=== PATIENT | female | born 1945 | race Caucasian/White ===

== ENCOUNTER 2017-08-06 12:20 | Emergency (ER) | payer MEDICARE, OTHER ==
[~2017-08-06] VITALS: Ht 167.6 cm; Wt 98.4 kg
[~2017-08-06 12:20] MED LIST: ASPIRIN ENTERI325 MG PO; DIOVAN HCT 1601 EACH PO; DIOVAN160 MG PO; ESIDRIX25 MG PO; LEVOTHYROXINE88 MCG PO; LEVOXYL125 MCG PO; METOPROLOL TART25 MG PO; SYMBICORT 16010.2 GM INH
[2017-08-06 14:01] LABS: BASOPHILS # (AUTO) 0.1 (0.0-0.1); BASOPHILS % 0.6 % (0.0-1.0); EOSINOPHILS # (AUTO) 0.1 (0.0-0.4); EOSINOPHILS % 0.6 % (0.0-6.0); HEMOGLOBIN 13.4 g/dL (12.0-16.0); LYMPHOCYTES # (AUTO) 1.7 (1.0-3.2); LYMPHOCYTES % 19.9 % (18.0-39.1); MEAN CORPUSCULAR HEMOGLOBIN 31.5 pg (28-32); MEAN CORPUSCULAR HGB CONC 32.7 g/dL (31-35); MEAN CORPUSCULAR VOLUME 96.5 fL (81-99); MONOCYTES # (AUTO) 0.7 (0.2-0.8); MONOCYTES % 7.9 % (4.4-11.3); NEUTROPHILS # (AUTO) 5.9 (2.1-6.9); NEUTROPHILS % 70.6 % (38.7-80.0); PLATELET COUNT 162 x10e3/uL (140-360); RED BLOOD COUNT 4.25 x10e6/uL (3.6-5.1); RED CELL DISTRIBUTION WIDTH 13.5 % (11.7-14.4)
[2017-08-06 14:06] LABS: INR 0.99; PROTHROMBIN TIME 13.6 seconds (11.9-14.5)
[2017-08-06 14:07] LABS: PARTIAL THROMBOPLASTIN TIME 31.2 seconds (23.8-35.5)
[2017-08-06 14:17] LABS: ALANINE AMINOTRANSFERASE 44 IU/L (0-55); ALBUMIN 3.7 g/dL (3.5-5.0); ALBUMIN/GLOBULIN RATIO 0.8 (0.8-2.0); ALKALINE PHOSPHATASE 70 IU/L (40-150); ANION GAP 12.9 mmol/L (8-16); BLOOD UREA NITROGEN 14 mg/dL (7-26); BUN/CREATININE RATIO 18 (6-25); CALCIUM 9.4 mg/dL (8.4-10.2); CARBON DIOXIDE 25 mmol/L (22-29); CHLORIDE 106 mmol/L (98-107); CREATINE KINASE 37 IU/L (29-168); CREATININE, SERUM 0.77 mg/dL (0.57-1.11); EST GLOMERULAR FILTRATION RATE > 60 ML/MIN (60-); GLUCOSE 140 mg/dL (74-118); POTASSIUM 3.9 mmol/L (3.5-5.1); SODIUM 140 mmol/L (136-145)
[2017-08-06 14:23] LABS: TROPONIN I 0.019 ng/mL (0-0.300)
--- NOTE | 2017-08-06 14:40 | Diagnostic Imaging Report ---
EXAMINATION: CHEST SINGLE (PORTABLE) INDICATION: \S\CHEST PAIN \S\[id number] \S\1420 \S\Y COMPARISON: Chest radiograph from 07/01/2010 and 08/21/2013 FINDINGS: AP view TUBES and LINES: None. LUNGS: Lungs are well inflated. Bibasilar atelectasis. Bilateral central pulmonary vascular congestion. PLEURA: No pleural effusion or pneumothorax. HEART AND MEDIASTINUM: Stable mild cardiomegaly.. BONES AND SOFT TISSUES: No acute osseous lesion. Soft tissues are unremarkable. UPPER ABDOMEN: No free air under the diaphragm. IMPRESSION: Mild cardiomegaly with associated central pulmonary vascular congestion. Signed by: Dr. Florence Santoro M.D. on 08/06/2017 2:37 PM
[2017-08-06 15:25] LABS: BILIRUBIN,URINE NEGATIVE (NEGATIVE); KETONES,URINE NEGATIVE (NEGATIVE); LEUKOCYTE ESTERASE ,URINE NEGATIVE (NEGATIVE); NITRITE,URINE NEGATIVE (NEGATIVE); PROTEIN,URINE DIPSTICK NEGATIVE (NEGATIVE); URINE UROBILINOGEN 0.2 mg/dL (0.2 - 1)
[2017-08-06 15:31] LABS: CLARITY,URINE CLEAR (CLEAR); COLOR,URINE YELLOW (YELLOW)
[2017-08-06 16:08] LABS: RBC,URINE 0-5 /HPF (0-5); WBC,URINE (MAN) 0-5 /HPF (0-5)
[2017-08-06 16:09] LABS: BACTERIA,URINE RARE /HPF; EPITHELIAL CELLS,URINE MODERATE /LPF
== END 2017-08-06 18:43 | disposition home or self-care (01) ==
LOC: ER 12:20
DX: R07.89 Other chest pain (principal); I10 Essential (primary) hypertension; I48.91 Unspecified atrial fibrillation; J44.9 Chronic obstructive pulmonary disease, unspecified; E03.9 Hypothyroidism, unspecified
CPT/HCPCS: 36415; 71010; 80053; 81001; 82550; 82553; 83880; 84484; 85025; 85610; 85730; 93005; 99283

== ENCOUNTER → 2017-11-22 | Outpatient (CLI) | payer MEDICARE | LOC: MAMMO 09:40 | PROVIDERS: ATTEND Internal Medicine | DX: Z12.31 Encounter for screening mammogram for malignant neoplasm of breast (principal) | CPT/HCPCS: 77067 ==

== ENCOUNTER → 2018-04-04 | Outpatient (CLI) | payer MEDICARE ==
--- NOTE | 2018-04-04 13:54 | Diagnostic Imaging Report ---
Exam: Lumbar spine AP lateral oblique and sacrum 2 views History: Pain Comparison: None. Findings: No acute fracture. Fusion of L4-L5 with interbody cage and 2 screws. No hardware loosening. Region of L5-S1 and the posterior elements. Mild sacroiliac degenerative arthrosis. Mild vascular calcifications. Impression: No acute osseous abnormality Lower lumbar spine fusion. No complication. Signed by: Dr. Travis Flores M.D. on 04/04/2018 1:51 PM
== END ==
LOC: RAD 13:01
PROVIDERS: ATTEND Internal Medicine
DX: M54.5 Low back pain (principal); Z98.1 Arthrodesis status
CPT/HCPCS: 72110; 72220

== ENCOUNTER → 2018-07-18 | Outpatient (CLI) | payer MEDICARE ==
--- NOTE | 2018-07-18 12:29 | Diagnostic Imaging Report ---
EXAMINATION: CHEST 2 VIEWS INDICATION: ^COUGH COMPARISON: 08/06/2017 FINDINGS: PA and lateral views TUBES and LINES: None. LUNGS: Lungs are well inflated. There is no evidence of pneumonia or pulmonary edema. PLEURA: No pleural effusion or pneumothorax. HEART AND MEDIASTINUM: The cardiac silhouette is mildly enlarged. BONES AND SOFT TISSUES: No acute osseous lesion. Soft tissues are unremarkable. UPPER ABDOMEN: No free air under the diaphragm. IMPRESSION: No acute thoracic abnormality. Signed by: Dr. Andrey Rivera MD on 07/18/2018 12:25 PM
== END ==
LOC: RAD 11:41
PROVIDERS: ATTEND Internal Medicine
DX: R05 Cough (principal)
CPT/HCPCS: 71046

== ENCOUNTER 2018-10-11 16:36 | Inpatient (IN) | payer MEDICARE ==
[~2018-10-11] VITALS: Ht 167.6 cm; Wt 96.4 kg
--- OUTSIDE RECORDS SUMMARY | 2018-10-11 16:40 | XMS REPORT | Summary of Care ---
Author Author [facility] - [place] Organization [facility] [place] Address Unknown Phone Unavailable Encounter HQ Encntr_alijames(FIN) [id number] Date(s): 06/08/16 - 06/08/16 [facility] Outpatient [facility] - [place] [address] [place] [address]- [phone] Discharge Disposition: Home or Self Care Attending Physician: Aryan Corcoran MD Vital Signs No data available for this section Problem List No data available for this section Allergies, Adverse Reactions, Alerts No data available for this section Medications No data available for this section Results No data available for this section Immunizations No data available for this section Procedures No data available for this section Social History No data available for this section Assessment and Plan No data available for this section
--- OUTSIDE RECORDS SUMMARY | 2018-10-11 16:40 | XMS REPORT | Summary of Care ---
Author Author [facility] Organization [facility] Address Unknown Phone Unavailable Encounter HQ Mayter_malou(FIN) [id number] Date(s): 03/07/18 - 03/07/18 [facility] [address] [place] [address]- [phone] Encounter Diagnosis Presence of right artificial knee joint (Final) - 03/13/18 Pain in right knee (Final) - Discharge Disposition: Home or Self Care Attending Physician: Mike Cárdenas MD Admitting Physician: Mike Cárdenas MD Referring Physician: Mike Cárdenas MD Vital Signs No data available for this section Problem List Condition Effective Dates Status Health Status Informant Arthritis(Confirmed) Active Back pain, Active chronic(Confirmed) COPD (chronic Active obstructive pulmonary disease)(Confirmed) Cough(Confirmed) Resolved HTN Active (hypertension)(Confi rmed) Hypothyroidism(Confi Active rmed) Allergies, Adverse Reactions, Alerts Substance Reaction Severity Status sulfa drugs Active shellfish Active iodine Active Medications No data available for this section Results No data available for this section Immunizations No data available for this section Procedures Procedure Date Related Diagnosis Body Site Status Appendectomy Completed Hip replacement1 Completed Hysterectomy Completed Knee replacement2 Completed Lumbar spinal fusion Completed 1parital 2partial Social History Social History Type Response Substance Abuse Use: None. Alcohol Never Smoking Status Former smoker; Exposure to Tobacco Smoke None; Cigarette Smoking Last 365 Days No; Reg Smoking Cessation Counseling No entered on: 08/01/18 Assessment and Plan No data available for this section
--- OUTSIDE RECORDS SUMMARY | 2018-10-11 16:40 | XMS REPORT | Summary of Care ---
Author Organization Unknown Address Unknown Phone Unavailable Encounter HQ Encntr_alias(FIN) [id number] Date(s): 07/19/14 - 07/19/14 [facility] Outpatient Imaging - [address] [address]- [place] Discharge Disposition: Home Physician Attending: Aryan Corcoran MD Reason for Visit V76.12 - SCREEN MAMMOGRA Problem List No data available for this section Allergies, Adverse Reactions, Alerts No data available for this section Medications No data available for this section Medications Administered During Your Visit No data available for this section Immunizations No data available for this section
--- OUTSIDE RECORDS SUMMARY | 2018-10-11 16:40 | XMS REPORT | Summary of Care ---
Author Author Tor Reyes M.A. Unknown Address [facility] Phone Unavailable Care Team Providers Care Cotton Seed Culler Name Role Phone ADAM CHEW M.D. 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, M17.11) Status: Active Medications Name Dates Details Medications not documented Allergies and Adverse Reactions Name Dates Details No Known Drug Allergies (Allergy) Status: Active Procedures Procedure Dates Details Post Op Promis 29 Survey Date: 17-Aug-2018 [U] XRAY BONE LENGTH STUDY-SCANOGRAM 14064 Date: 26-Sep-2018 [U] XRAY KNEE 1 OR 2 VWS RIGHT 59467 Date: 26-Sep-2018 Immunization Name Dates Details Immunizations not documented Social History Name Dates Details Unknown if ever smoked Vital Signs Date Test Result Details No Known Vitals to report Results Date Description Value Details Results not documented Plan of Care Name Dates Details Planned Observations Planned Goals not documented Planned Encounters Appointment; ADAM CHEW M.D. On: 28-Sep-2018 11:30 Interventions Provided Labs/Procedures/Imaging* [U] XRAY BONE LENGTH STUDY-SCANOGRAM 00783; To Be Done: 28 Sep 2018 * [U] XRAY KNEE 1 OR 2 VWS RIGHT 74331; To Be Done: 28 Sep 2018 Instructions Name Dates Details Instructions not documented Encounters Appointment; ADAM CHEW M.D. Encounter Diagnosis: Problem not documented On: 05-Apr-2018 15:30 Appointment; ADAM CHEW M.D. Encounter Diagnosis: Problem not documented On: 10-May-2018 9:15 Appointment; ADAM CHEW M.D. Encounter Diagnosis: Problem not documented On: 17-May-2018 10:30 Appointment; ADAM CHEW M.D. Encounter Diagnosis: Problem not documented On: 26-May-2018 10:15 Appointment; ADAM CHEW M.D. Encounter Diagnosis: Problem not documented On: 29-Jun-2018 14:45 Appointment; ADAM CHEW M.D. Encounter Diagnosis: Problem not documented On: 26-Jul-2018 10:15 Appointment; ADAM CHEW M.D. Encounter Diagnosis: Problem not documented On: 01-Aug-2018 7:00 Appointment; ADAM CHEW M.D. Encounter Diagnosis: Problem not documented On: 10-Aug-2018 15:15 Appointment; ADAM CHEW M.D. Encounter Diagnosis: Problem not documented On: 17-Aug-2018 13:30 Appointment; ADAM CHEW M.D. Encounter Diagnosis: Problem not documented On: 28-Sep-2018 11:30
--- OUTSIDE RECORDS SUMMARY | 2018-10-11 16:40 | XMS REPORT | Summary of Care ---
Author Organization Unknown Address Unknown Phone Unavailable Encounter Dates Location Diagnoses Discharge Providers Disposition 09/21/2013 [facility] Outpatient Imaging - Home Aryan Corcoran [facility] 09/21/[address] Reason for Visit 789.00 - ABDMNAL PAIN UN Problem List No data available for this section Allergies, Adverse Reactions, Alerts No data available for this section Medications No data available for this section Medications Administered During Your Visit No data available for this section Immunizations No data available for this section
--- OUTSIDE RECORDS SUMMARY | 2018-10-11 16:40 | XMS REPORT | Summary of Care ---
Author Author [facility] Address Unknown Phone Unavailable Encounter HQ Saroj(FIN) [id number] Date(s): 08/03/18 - 09/01/18 [facility] Discharge Disposition: Home or Self Care Attending Physician: Phan Zamora MD Vital Signs No data available for [...]
--- OUTSIDE RECORDS SUMMARY | 2018-10-11 16:40 | XMS REPORT | Summary of Care ---
Author Author [facility] Outpatient Imaging [facility]patient [facility] [place] Address Unknown Phone Unavailable Encounter HQ Mayter_malou(FIN) [id number] Date(s): 02/28/18 - 02/28/18 [facility] Outpatient Imaging [place] [address] [facility] [place], [place] [address]- [phone] Encounter Diagnosis Pain in right knee (Final) - 03/07/18 Discharge Disposition: Home or Self Care Attending Physician: Mike Cárdenas MD Referring Physician: Mike [...]
--- OUTSIDE RECORDS SUMMARY | 2018-10-11 16:40 | XMS REPORT ---
Author Author [facility] Address Unknown Phone Unavailable Care Team Providers Care Edger Machine Setter Name Role Phone Antonio DUNCAN Unavailable Unavailable Wolfgang SHANKAR Unavailable Unavailable Problems This patient has no known problems. Allergies, Adverse Reactions, Alerts This patient has no known allergies or adverse reactions. Medications This patient has no known medications. Results Test Description Test Time Test Comments Text Results Atomic Results Result Comments CHEST 2 VIEWS 2018-07-18 12:24:00 [place] [address] Patient Name: CYNDI DYER MR #: [id number] : 1945 Age/Sex: 73/F Req #: [id number] Adm Physician: Ordered by: MUSA DUNCAN MD Report #: [id number] Location: [facility] Room/Bed: Procedure: [id number] DX/CHEST 2 VIEWS Exam Date: Exam Time: REPORT STATUS: Signed EXAMINATION: CHEST 2 VIEWS INDICATION: COUGH COMPARI SON: 08/06/2017 FINDINGS: PA and lateral views TUBES and LINES: None. LUNGS: Lungs are well inflated. There is no evidence of pneumonia or pulmonary edema. PLEURA: No pleural effusion or pneumothorax. HEART AND MEDIASTINUM: The cardiac silhouette is mildly enlarged. BONES AND SOFT TISSUES: No acute osseous lesion. Soft tissues are unremarkable. UPPER ABDOMEN: No free air under the diaphragm. IMPRESSION: No acute thoracic abnormality. Signed by: Dr. Andrey Parsons MD on 07/18/2018 12:25 PM Dictated By: ANDREY PARSONS MD 24 Transcribed By: DONNIE on 07/18/181224 COPY TO: MUSA DUNCAN MD SP LUMBAR, COMPLETE MIN 4VW 2018-04-04 13:48:00 [place] [address] Patient Name: CYNDI DYER MR #: [id number] : 1945 Age/Sex: 73/F Req #: [id number] Adm Physician: Ordered by: MUSA DUNCAN MD Report #: [id number] Location: [facility] Room/Bed: Procedure: [id number] DX/SP LUMBAR, COMPLETE MIN 4VW Exam Date: 04/04/18 Exam Time: 1325 REPORT STATUS: Signed Exam: Lumbar spine AP lateral oblique and sacrum 2 views History: Pain Comparison: None. Findings: No acute fracture. Fusion of L4-L5 with interbody cage and 2 screws. No hardware loosening. Region of L5-S1 and the posterior elements. Mild sacroiliac degenerative arthrosis. Mild vascular calcifications. Impression: No acute osseous abnormality Lower lumbar spine fusion. No complication. Signed by: Dr. Andrade Chua M.D. on 04/04/2018 1:51 PM Dictated By: ANDRADE CHUA MD 1351 Transcribed By: DONNIE on 04/04/18 135 COPY TO: MUSA DUNCAN MD SACRUM X-RAY 2018-04-04 13:48:00 [place] [address] Patient Name: CYNDI DYER MR #: [id number] : 1945 Age/Sex: 73/F Req #: [id number] Adm Physician: Ordered by: MUSA DUNCAN MD Report #: [id number] Location: RAD Room/Bed: Procedure: [id number] DX/SACRUM X-RAY Exam Date: 04/04/18 Exam Time: 1325 REPORT STATUS: Signed Exam: Lumbar spine AP lateral oblique and sacrum 2 views History: Pain Comparison: None. Findings: No acute fracture. Fusion of L4-L5 with interbody cage and 2 screws. No hardware loosening. Region of L5-S1 and the posterior elements. Mild sacroiliac degenerative arthrosis. Mild vascular calcifications. Impression: No acute osseous abnormality Lower lumbar spine fusion. No complication. Signed by: Dr. Andrade Chua M.D. on 04/04/2018 1:51 PM Dictated By: ANDRADE CHUA MD 1351 Transcribed By: DONNIE on 04/04/18 1351 COPY TO: MUSA DUNCAN MD MAMMOGRAPHY DIGITAL SCR BILAT [place] [address] Patient Name: CYNDI DYER MR #: [id number] : 1945 Age/Sex: 72/F Req #: [id number] Adm Physician: Ordered by: MUSA DUNCAN MD Report #: [id number] Location: MAMMO Room/Bed: Procedure: [id number] MG/MAMMOGRAPHY DIGITAL SCR BILAT Exam Date: 11/22/17 Exam Time: 09 REPORT STATUS: Signed #[id number] - [id number] #BILATERAL DIGITAL SCREENING MAMMOGRAM WITH CAD: 11/22/2017 CLINICAL: Routine screening. Comparison is made to exams dated: 06/08/2016 mammogram and 07/19/2014 mammogram - [facility]. Current study contains 4 films. The tissue of both breasts is predominantly fatty. Current study was also evaluated with a Computer Aided Detection (CAD) system. No significant masses, calcifications, or other findings are seen in either breast. Benign calcifications are present. There has been no significant interval change. IMPRESSION: NEGATIVE There is no mammographic evidence of malignancy. A 1 year screening mammogram is recommended. The patient will be notified by letter of the results. Henry Kim Jr., D.O. cw/:12/01/2017 10:13:54 Print Designer: Mana AMAROR)(), [facility] letter sent: Compared to Prior B9 Mammogram BI-RADS: 1 Negative Dictated By: HENRY KIM DO 1013 Transcribed By: HETAL on 12/01/17 1013 COPY TO: MUSA DUNCAN MD CHEST SINGLE (PORTABLE) [place] [address] Patient Name: CYNDI DYER MR #: [id number] : 1945 Age/Sex: 72/F Req #: [id number] Adm Physician: Ordered by: DAISY SHANKAR MD Report #: [id number] Location: ER Room/Bed: Procedure: [id number] DX/CHEST SINGLE (PORTABLE) Exam Date: 08/06/17 Exam Time: 1420 REPORT STATUS: Signed EXAMINATION: CHEST SINGLE (PORTABLE) INDICATION: COMPARISON: Chest radiograph from 07/01/2010 and 08/21/2013 FINDINGS: AP view TUBES and LINES: None. LUNGS: Lungs are well inflated. Bibasilar atelectasis. Bilateral central pulmonary vascular congestion. PLEURA: No pleural effusion or pneumothorax. HEART AND MEDIASTINUM: Stable mild cardiomegaly.. BONES AND SOFT TISSUES: No acute osseous lesion. Soft tissues are unremarkable. UPPER ABDOMEN: No free air under the diaphragm. IMPRESSION: Mild cardiomegaly with associated central pulmonary vascular congestion. Signed by: Dr. Ana Augustin M.D. on 08/06/2017 2:37 PM Dictated By: ANA AUGUSTIN MD 36 Transcribed By: DONNIE on 08/06/171436 COPY TO: DAISY SHANKAR MD
--- OUTSIDE RECORDS SUMMARY | 2018-10-11 16:40 | XMS REPORT | Summary of Care ---
Author Author [facility] Organization [facility] Address Unknown Phone Unavailable Encounter FABIAN Kyle(HO) [id number] Date(s): 08/01/18 - 08/02/18 [facility] [address] [place] [address]- Discharge Disposition: Home or Self Care Attending Physician: Phan Zamora MD Admitting Physician: Phan Zamora MD Referring Physician: Phan Zamora MD Vital Signs Most recent to 1 2 3 4 oldest [Reference Range]: Height 167.64 cm 167.64 cm (08/01/18 10:48 PM) (07/19/18 1:54 PM) Temperature Oral 98.2 DegF 98.1 DegF 98 DegF 98 DegF [96.4-99.1 DegF] (08/02/18 8:30 AM) (08/02/18 4:00 AM) (08/02/18 12:00 AM) (08/02/18 12:00 AM) Blood Pressure 146/60 mmHg 124/67 mmHg 148/74 mmHg 148/74 mmHg [90-140/60-90 mmHg] *HI* (08/02/18 4:00 AM) *HI* *HI* (08/02/18 8:30 AM) (08/02/18 12:00 AM) (08/02/18 12:00 AM) Respiratory Rate 16 BRMIN 18 BRMIN 16 BRMIN [14-20 BRMIN] (08/02/18 8:30 AM) (08/02/18 7:43 AM) (08/02/18 4:00 AM) Peripheral Pulse 60 bpm 65 bpm 61 bpm 61 bpm Rate [60-100 bpm] (08/02/18 8:30 AM) (08/02/18 4:00 AM) (08/02/18 12:00 AM) (08/02/18 12:00 AM) Weight 98.636 kg 98.409 kg (08/01/18 10:48 PM) (07/19/18 1:54 PM) Body Mass Index 35.1 m2 35.02 m2 (08/01/18 10:48 PM) (07/19/18 1:54 PM) Problem List Condition Effective Dates Status Health Status Informant Arthritis(Confirmed) Active Back pain, Active chronic(Confirmed) COPD (chronic Active obstructive pulmonary disease)(Confirmed) Cough(Confirmed) Resolved HTN Active (hypertension)(Confi rmed) Hypothyroidism(Confi Active rmed) Allergies, Adverse Reactions, Alerts Substance Reaction Severity Status sulfa drugs Active shellfish Active iodine Active Medications 1/2 NS 1,000 mL 1,000 mL, Rate: 75 ml/hr, Infuse over: 13.3 hr, Route: IV, Dosing Weight 98.409 kg, Total Volume: 1,000, Start date: 08/01/18 16:24:00 BOOK AGENT, Duration: 30 day, St op date: 08/31/18 16:23:00 BOOK AGENT, 2.17, m2 Start Date: 08/01/18 Stop Date: 08/02/18 Status: Discontinued albuterol 2.49 mg, 3 mL, Route: NEB, Drug form: HERB BAUTISTA, Start date: 08/02/18 7:00:[address], Duration: 30 day, Stop date: 08/31/18 19:00:00 BOOK AGENT Notes: SEE RT DOCUMENTATION (Same as: Ramírez) Start Date: 08/02/18 Stop Date: 08/02/18 Status: Discontinued albuterol 2.49 mg, 3 mL, Route: NEB, Drug form: HERB BAUTISTA, Start date: 08/02/18 7:00:[address], Duration: 30 day, Stop date: 08/31/18 19:00:00 BOOK AGENT Notes: SEE RT DOCUMENTATION (Same as: Provenkashif) Start Date: 08/02/18 Stop Date: 08/02/18 Status: Discontinued albuterol-ipratropium 2.5-0.5 mg inhalation solution 3 mL, Route: NEB, Dosing Weight 98.409, kg, ONCE, STAT, Start date: 08/01/18 13: 30:00 BOOK AGENT, Stop date: 08/01/18 13:30:00 BOOK AGENT Start Date: 08/01/18 Stop Date: 08/01/18 Status: Discontinued ANES acetaminophen 1,000 mg, Route: PO, Drug form: TAB, ONCE, Dosing Weight 98.409, kg, PRN Pain Sc ore 1-3, Start date: 08/01/18 17:09:00 BOOK AGENT Start Date: 08/01/18 Stop Date: 08/01/18 Status: Discontinued ANES diphenhydrAMINE 12.5 mg, Route: IVP, Drug form: INJ, Q6H, Dosing Weight 98.409, kg, PRN Itching, Start date: 08/01/18 17:09:00 BOOK AGENT, Duration: 30 day, Stop date: 08/31/18 17:08: 00 BOOK AGENT Start Date: 08/01/18 Stop Date: 08/01/18 Status: Discontinued ANES fentaNYL 50 microgram, Route: IVP, Q5Min, Dosing Weight 98.409, kg, PRN Pain Score 7-10, Priority: Routine, Start date: 08/01/18 17:09:00 BOOK AGENT, Duration: 2 doses or times , Stop date: Limited # of times Start Date: 08/01/18 Stop Date: 08/01/18 Status: Completed ANES flumazenil 0.2 mg, Route: IVP, PRN, Dosing Weight 98.409, kg, PRN Benzodiazepine Reversal, Initial dose, Start date: 08/01/18 17:09:00 BOOK AGENT, Duration: 30 day, Stop date: 17:08:00 BOOK AGENT Start Date: 08/01/18 Stop Date: 08/01/18 Status: Discontinued ANES hydrALAZINE 10 mg, Route: IVP, Q20Min, Dosing Weight 98.409, kg, PRN Elevated BP, Start date : 08/01/18 17:09:00 BOOK AGENT, Duration: 2 doses or times, Stop date: Limited # of edwina es Start Date: 08/01/18 Stop Date: 08/01/18 Status: Discontinued ANES HYDROmorphone 0.5 mg, Route: IVP, Q5Min, Dosing Weight 98.409, kg, PRN Pain Score 7-10, Start date: 08/01/18 17:09:00 BOOK AGENT, Duration: 4 doses or times, Stop date: Limited # of times Start Date: 08/01/18 Stop Date: 08/01/18 Status: Discontinued ANES labetalol 10 mg, Route: IVP, Q5Min, Dosing Weight 98.409, kg, PRN Elevated BP, Start date: 08/01/18 17:09:00 BOOK AGENT, Duration: 5 doses or times, Stop date: Limited # of times Start Date: 08/01/18 Stop Date: 08/01/18 Status: Discontinued ANES naloxone 0.4 mg, Route: IVP, Q2MIN, Dosing Weight 98.409, kg, PRN Narcotic Reversal, Star t date: 08/01/18 17:09:00 BOOK AGENT, Duration: 8 doses or times, Stop date: Limited # of times Start Date: 08/01/18 Stop Date: 08/01/18 Status: Discontinued ANES ondansetron 4 mg, Route: IVP, ONCE, Dosing Weight 98.409, kg, PRN Nausea & Vomiting, Start date: 08/01/18 17:09:00 BOOK AGENT Start Date: 08/01/18 Stop Date: 08/01/18 Status: Discontinued ANES oxyCODONE 5 mg, Route: PO, Drug form: TAB, Q4H, Dosing Weight 98.409, kg, PRN Pain Score 4 -6, Start date: 08/01/18 17:09:00 BOOK AGENT, Duration: 30 day, Stop date: 08/31/18 17: 08:00 BOOK AGENT Start Date: 08/01/18 Stop Date: 08/01/18 Status: Discontinued ANES oxyCODONE 10 mg, Route: PO, Drug form: TAB, Q4H, Dosing Weight 98.409, kg, PRN Pain Score 7-10, Start date: 08/01/18 17:09:00 BOOK AGENT, Duration: 30 day, Stop date: 08/31/18 1 7:08:00 BOOK AGENT Start Date: 08/01/18 Stop Date: 08/01/18 Status: Discontinued Breo Ellipta 100 mcg-25 mcg inhalation powder 1 puff, Route: INHALATION, Drug Form: PWDR, Dosing Weight 98.409, kg, Daily, Sta rt date: 08/02/18 9:00:00 BOOK AGENT, Duration: 30 day, Stop date: 08/31/18 9:00:00 BOOK AGENT Start Date: 08/02/18 Stop Date: 08/02/18 Status: Deleted Breo Ellipta 100 mcg-25 mcg inhalation powder 1 puff, INHALATION, Daily, 0 Refill(s) Start Date: 07/19/18 Status: Ordered ceFAZolin 2 gm, Route: IVPB, ONCALL, Dosing Weight 98.409, kg, Start date: 07/31/18 9:00:0 0 BOOK AGENT, Duration: 1 doses or times, ABX Indication: Surgical Prophylaxis Start Date: 07/31/18 Stop Date: 07/31/18 Status: Discontinued ceFAZolin (ANES) Route: IV, Drug form: INJ, ONCE, Stop date: 08/01/18 15:13:00 BOOK AGENT Start Date: 08/01/18 Stop Date: 08/01/18 Status: Completed ceFAZolin (SCIP) + sterile water 10 mL 1 gm, Route: IVP, [id number], Dosing Weight 98.409, kg, Start date: 08/01/18 18:00:0 0 BOOK AGENT, Duration: 3 doses or times, Stop date: 08/02/18 14:00:00 BOOK AGENT, ABX Indicat ion: Surgical Prophylaxis Notes: (Same As: Ancef, Kefzol) MEDICATION WASTE Product Size: 1000 mgP roduct Wasted: ___ mg Start Date: 08/01/18 Stop Date: 08/02/18 Status: Completed ceFAZolin + sterile water 20 mL 2 gm, Route: IVPB, ONCALL, Dosing Weight 98.409, kg, Start date: 08/01/18 13:00: 00 BOOK AGENT, Duration: 1 doses or times, ABX Indication: Surgical Prophylaxis Notes: (Same As: Ancef, Kefzol) MEDICATION WASTE Product Size: 1000 mgP roduct Wasted: ___ mg Start Date: 08/01/18 Stop Date: 08/02/18 Status: Discontinued dexamethasone (ANES) Route: IV, Drug form: INJ, ONCE, Stop date: 08/01/18 15:18:00 BOOK AGENT Start Date: 08/01/18 Stop Date: 08/01/18 Status: Completed Dextrose 50% Syringe 25 gm, 50 mL, Route: IVP, Drug Form: INJ, Dosing Weight 98.409, kg, PRN, PRN Blo od Glucose Results, Start date: 08/01/18 16:24:00 BOOK AGENT, Duration: 30 day, Stop da te: 08/31/18 16:23:00 BOOK AGENT Start Date: 08/01/18 Stop Date: 08/02/18 Status: Discontinued Dextrose 50% Syringe 12.5 gm, 25 mL, Route: IVP, Drug Form: INJ, Dosing Weight 98.409, kg, PRN, PRN B lood Glucose Results, Start date: 08/01/18 16:24:00 BOOK AGENT, Duration: 30 day, Stop date: 08/31/18 16:23:00 BOOK AGENT Start Date: 08/01/18 Stop Date: 08/02/18 Status: Discontinued enoxaparin 40 mg, 0.4 mL, Route: SUB-Q, Drug form: INJ, [id number], Dosing Weight 98.409, kg, Start date: 08/01/18 17:00:00 BOOK AGENT, Duration: 30 day, Stop date: 08/30/18 15:00: 00 BOOK AGENT Notes: (Same as: Lovenox) Start Date: 08/01/18 Stop Date: 08/02/18 Status: Discontinued fentaNYL (ANES) Route: IV, Drug form: INJ, ONCE, Stop date: 08/01/18 16:55:00 BOOK AGENT Start Date: 08/01/18 Stop Date: 08/01/18 Status: Completed fentaNYL (ANES) Route: IV, Drug form: INJ, ONCE, Stop date: 08/01/18 15:43:00 BOOK AGENT Start Date: 08/01/18 Stop Date: 08/01/18 Status: Completed gabapentin 300 mg, Route: PO, ONCALL, Dosing Weight 98.409, kg, Start date: 08/01/18 13:00: 00 BOOK AGENT, Duration: 30 day, Stop date: 08/31/18 12:59:00 BOOK AGENT Start Date: 08/01/18 Stop Date: 08/01/18 Status: Completed gabapentin 300 mg, Route: PO, ONCALL, Dosing Weight 98.409, kg, Start date: 07/31/18 9:00:0 0 BOOK AGENT, Duration: 30 day, Stop date: 08/30/18 8:59:00 BOOK AGENT Start Date: 07/31/18 Stop Date: 07/31/18 Status: Discontinued glucagon 1 mg, Route: IM, Drug form: PDR/INJ, PRN, Dosing Weight 98.409, kg, PRN Blood Gl ucose Results, Start date: 08/01/18 16:24:00 BOOK AGENT, Duration: 30 day, Stop date: 0 08/31/18 16:23:00 BOOK AGENT Start Date: 08/01/18 Stop Date: 08/02/18 Status: Discontinued glycopyrrolate (ANES) Route: IV, Drug form: INJ, ONCE, Stop date: 08/01/18 16:55:00 BOOK AGENT Start Date: 08/01/18 Stop Date: 08/01/18 Status: Completed glycopyrrolate (ANES) Route: IV, Drug form: INJ, ONCE, Stop date: 08/01/18 15:18:00 BOOK AGENT Start Date: 08/01/18 Stop Date: 08/01/18 Status: Completed hydrALAZINE 10 mg, 0.5 mL, Route: IV, Drug form: INJ, Q4H, Dosing Weight 98.409, kg, PRN Hyp ertension, Start date: 08/01/18 20:29:00 BOOK AGENT, Duration: 30 day, Stop date: 08/31 20:28:00 BOOK AGENT Notes: (Same as: Apresoline)Push over 5 minutes Start Date: 08/01/18 Stop Date: 08/02/18 Status: Discontinued hydrochlorothiazide 12.5 mg, 1 tab, Route: PO, Drug form: TAB, Daily, Start date: 08/02/18 9:00:[address], Duration: 30 day, Stop date: 08/31/18 9:00:00 BOOK AGENT Notes: (Same as: Hydrodiuril). Give with food. Start Date: 08/02/18 Stop Date: 08/02/18 Status: Discontinued hydrochlorothiazide-valsartan 12.5 mg-160 mg oral tablet 1 tab, PO, Daily, # 30 tab, 0 Refill(s) Start Date: 07/19/18 Status: Ordered hydrochlorothiazide-valsartan 12.5 mg-160 mg oral tablet 1 tab, Route: PO, Drug Form: TAB, Dosing Weight 98.409, kg, Daily, Start date: 0 08/02/18 9:00:00 BOOK AGENT, Duration: 30 day, Stop date: 08/31/18 9:00:00 BOOK AGENT Start Date: 08/02/18 Stop Date: 08/02/18 Status: Deleted insulin lispro 6 unit, 0.06 mL, Route: SUB-Q, Drug form: SOLN, TID-Before Meals, Dosing Weight 98.409, kg, PRN Blood Glucose Results, Start date: 08/01/18 16:24:00 BOOK AGENT, Durati on: 30 day, Stop date: 08/31/18 16:23:00 BOOK AGENT Notes: (Same as: Humalog ) Roll in palms of hands gently; Do not shake `vigorou sly. "Single Patient Use Only " WASTE: F/P - Black; E - [facility] [employer] [address] able for 28 days at room temperature.Expires in days from Da te Start Date: 08/01/18 Stop Date: 08/02/18 Status: Discontinued insulin lispro 2 unit, 0.02 mL, Route: SUB-Q, Drug form: SOLN, TID-Before Meals, Dosing Weight 98.409, kg, PRN Blood Glucose Results, Start date: 08/01/18 16:24:00 BOOK AGENT, Durati on: 30 day, Stop date: 08/31/18 16:23:00 BOOK AGENT Notes: (Same as: Humalog ) Roll in palms of hands gently; Do not shake `vigorou sly. "Single Patient Use Only " WASTE: F/P - Black; E - [facility] [address] able for 28 days at room temperature.Expires in days from Da te Start Date: 08/01/18 Stop Date: 08/02/18 Status: Discontinued insulin lispro 4 unit, 0.04 mL, Route: SUB-Q, Drug form: SOLN, TID-Before Meals, Dosing Weight 98.409, kg, PRN Blood Glucose Results, Start date: 08/01/18 16:24:00 BOOK AGENT, Durati on: 30 day, Stop date: 08/31/18 16:23:00 BOOK AGENT Notes: (Same as: Humalog ) Roll in palms of hands gently; Do not shake `vigorou sly. "Single Patient Use Only " WASTE: F/P - Black; E - [facility] [address] able for 28 days at room temperature.Expires in days from Da te Start Date: 08/01/18 Stop Date: 08/02/18 Status: Discontinued insulin lispro 10 unit, 0.1 mL, Route: SUB-Q, Drug form: SOLN, TID-Before Meals, Dosing Weight 98.409, kg, PRN Blood Glucose Results, Start date: 08/01/18 16:24:00 BOOK AGENT, Durati on: 30 day, Stop date: 08/31/18 16:23:00 BOOK AGENT Notes: (Same as: Humalog ) Roll in palms of hands gently; Do not shake `vigorou sly. "Single Patient Use Only " WASTE: F/P - Black; E - [facility] [address] able for 28 days at room temperature.Expires in days from Da te Start Date: 08/01/18 Stop Date: 08/02/18 Status: Discontinued insulin lispro 8 unit, 0.08 mL, Route: SUB-Q, Drug form: SOLN, TID-Before Meals, Dosing Weight 98.409, kg, PRN Blood Glucose Results, Start date: 08/01/18 16:24:00 BOOK AGENT, Durati on: 30 day, Stop date: 08/31/18 16:23:00 BOOK AGENT Notes: (Same as: Humalog ) Roll in palms of hands gently; Do not shake `vigorou sly. "Single Patient Use Only " WASTE: F/P - Black; E - [facility] [address] able for 28 days at room temperature.Expires in days from Da te Start Date: 08/01/18 Stop Date: 08/02/18 Status: Discontinued ketOROLAC (ANES) IV, ONCE Start Date: 08/01/18 Stop Date: 08/01/18 Status: Completed Lactated Ringers Injection IV (ANES) 1000 mL Route: IV, Total Volume: 1,000, Start date: 08/01/18 14:22:00 BOOK AGENT, Stop date: 15:22:00 BOOK AGENT Start Date: 08/01/18 Stop Date: 08/01/18 Status: Completed Lactated Ringers Injection IV 1,000 mL 1,000 mL, Rate: 25 ml/hr, Infuse over: 40 hr, Route: IV, Dosing Weight 98.409 kg , Total Volume: 1,000, Start date: 07/31/18 8:44:00 BOOK AGENT, Duration: 30 day, Stop date: 08/30/18 8:43:00 BOOK AGENT, 2.17, m2 Start Date: 07/31/18 Stop Date: 08/01/18 Status: Discontinued Lactated Ringers Injection IV 1000 mL 1,000 mL, Rate: 25 ml/hr, Infuse over: 40 hr, Route: IV, Dosing Weight 98.409 kg , Total Volume: 1,000, Start date: 08/01/18 13:30:00 BOOK AGENT, Duration: 30 day, Stop date: 08/31/18 13:29:00 BOOK AGENT, 2.17, m2 Start Date: 08/01/18 Stop Date: 08/01/18 Status: Discontinued levothyroxine 112 microgram, 1 tab, Route: PO, Drug form: TAB, [id number], Dosing Weight 98.409, k g, Start date: 08/02/18 6:30:00 BOOK AGENT, Duration: 30 day, Stop date: 08/31/18 6:30: 00 BOOK AGENT Notes: Take 1 hour before or 2 hours after meal; Enteral feeds may interefere wi th the absorption of this medication.(Same as:Levothroid) Start Date: 08/02/18 Stop Date: 08/02/18 Status: Discontinued levothyroxine 112 mcg (0.112 mg) oral tablet 112 microgram=1 tab, PO, Daily, # 30 tab, 0 Refill(s) Start Date: 07/19/18 Status: Ordered lidocaine (ANES) Route: IV, Drug form: INJ, ONCE, Stop date: 08/01/18 15:13:00 BOOK AGENT Start Date: 08/01/18 Stop Date: 08/01/18 Status: Completed Lovenox 40 mg/0.4 mL subcutaneous solution 40 mg, SUB-Q, Daily, X 9 day, # 9 ea, 0 Refill(s) Start Date: 08/02/18 Stop Date: 08/11/18 Status: Ordered metoprolol tartrate 25 mg, 1 tab, Route: PO, Drug form: TAB, Q12H, Dosing Weight 98.409, kg, Start d ate: 08/01/18 21:00:00 BOOK AGENT, Duration: 30 day, Stop date: 08/31/18 9:00:00 BOOK AGENT Notes: (Same as: Lopressor) Start Date: 08/01/18 Stop Date: 08/02/18 Status: Discontinued metoprolol tartrate 25 mg oral tablet 25 mg=1 tab, PO, BID, HOLD FOR HR < 65, # 60 tab, 0 Refill(s) Start Date: 07/19/18 Status: Ordered neostigmine (ANES) Route: IV, Drug form: INJ, ONCE, Stop date: 08/01/18 16:55:00 BOOK AGENT Start Date: 08/01/18 Stop Date: 08/01/18 Status: Completed [place] 10/325 oral tablet 1 tab, Route: PO, Drug Form: TAB, Dosing Weight 98.409, kg, Q3H, PRN Pain Score 4-6, Start date: 08/01/18 16:24:00 BOOK AGENT, Duration: 30 day, Stop date: 08/31/18 16 :23:00 BOOK AGENT Notes: Do not exceed 4gm/day of acetaminophen. (Same as: [place] 325/10) Start Date: 08/01/18 Stop Date: 08/02/18 Status: Discontinued [place] 5/325 oral tablet 1 tab, Route: PO, Drug Form: TAB, Dosing Weight 98.409, kg, Q3H, PRN Pain Score 1-3, Start date: 08/01/18 16:24:00 BOOK AGENT, Duration: 30 day, Stop date: 08/31/18 16 :23:00 BOOK AGENT Notes: (Same as: [place] 325/5) Do not exceed 4gm/day of acetaminophen. Start Date: 08/01/18 Stop Date: 08/02/18 Status: Discontinued ondansetron (ANES) Route: IV, Drug form: INJ, ONCE, Stop date: 08/01/18 15:18:00 BOOK AGENT Start Date: 08/01/18 Stop Date: 08/01/18 Status: Completed oxyCONTIN 10 mg, Route: PO, Drug form: ERTAB, ONCALL, Dosing Weight 98.409, kg, Start date : 08/01/18 13:00:00 BOOK AGENT, Duration: 30 day, Stop date: 08/31/18 12:59:00 BOOK AGENT Start Date: 08/01/18 Stop Date: 08/01/18 Status: Completed oxyCONTIN 10 mg, Route: PO, Drug form: ERTAB ONCALL, Dosing Weight 98.409, kg, Start date : 07/31/18 9:00:00 BOOK AGENT, Duration: 30 day, Stop date: 08/30/18 8:59:00 BOOK AGENT Start Date: 07/31/18 Stop Date: 07/31/18 Status: Completed Percocet 10/325 oral tablet 1 tab, Route: PO, Drug Form: TAB, Dosing Weight 98.409, kg, Q3H, PRN Pain Score 7-10, Start date: 08/01/18 16:24:00 BOOK AGENT, Duration: 30 day, Stop date: 08/31/18 1 6:23:00 BOOK AGENT Start Date: 08/01/18 Stop Date: 08/01/18 Status: Deleted Percocet 10/325 oral tablet 1 tab, PO, Q4H, PRN for pain, # 90 tab, 0 Refill(s), given to patient Start Date: 08/02/18 Stop Date: 08/03/18 Status: Completed phenylephrine (ANES) Route: IV, Drug form: INJ, ONCE, Stop date: 08/01/18 15:18:00 BOOK AGENT Start Date: 08/01/18 Stop Date: 08/01/18 Status: Completed propofol (ANES) Route: IV, Drug form: INJ, ONCE, Stop date: 08/01/18 15:13:00 BOOK AGENT Start Date: 08/01/18 Stop Date: 08/01/18 Status: Completed Pulmicort Respules 0.25 mg, 2 mL, Route: NEB, Drug form: SUSP, RBID, Start date: 08/02/18 8:00:[address], Duration: 30 day, Stop date: 08/31/18 20:00:00 BOOK AGENT Notes: (Same As: Pulmicort respule). Start Date: 08/02/18 Stop Date: 08/02/18 Status: Discontinued MILLICENT Pericapsular INJ 100 mL, Route: InFILtration(local), Drug Form: INJ, Dosing Weight 98.409, kg, CERTIFIED CODING SPECIALIST, Start date: 08/01/18 14:00:00 BOOK AGENT, Duration: 1 day, Stop date: 08/02/18 13 :59:00 BOOK AGENT Notes: NOT FOR IV useEach mL contains: Ropivacaine 2.46 mg, Epinephrine 0. 005 mg, Clonidine 0.0008 mg and Ketorolac 0.3 mg in Sodium Chloride Start Date: 08/01/18 Stop Date: 08/02/18 Status: Discontinued MILLICENT Pericapsular INJ 100 mL, Route: InFILtration(local), Drug Form: INJ, Dosing Weight 98.409, kg, CERTIFIED CODING SPECIALIST, Start date: 08/01/18 13:00:00 BOOK AGENT, Duration: 1 doses or times Notes: NOT FOR IV useEach mL contains: Ropivacaine 2.46 mg, Epinephrine 0. 005 mg, Clonidine 0.0008 mg and Ketorolac 0.3 mg in Sodium Chloride Start Date: 08/01/18 Stop Date: 08/02/18 Status: Discontinued MILLICENT Pericapsular INJ 100 mL, Route: InFILtration(local), Drug Form: INJ, Dosing Weight 98.409, kg, CERTIFIED CODING SPECIALIST, Start date: 07/31/18 9:00:00 BOOK AGENT, Duration: 1 doses or times Start Date: 07/31/18 Stop Date: 07/31/18 Status: Discontinued rocuronium (ANES) Route: IV, Drug form: INJ, ONCE, Stop date: 08/01/18 15:13:00 BOOK AGENT Start Date: 08/01/18 Stop Date: 08/01/18 Status: Completed Roxicodone 10 mg, 2 tab, Route: PO, Drug form: TAB, Q3H, PRN Pain Score 7-10, Start date: 0 08/01/18 20:22:00 BOOK AGENT, Duration: 30 day, Stop date: 08/31/18 20:21:00 BOOK AGENT Notes: (Same as: Roxicodone) Start Date: 08/01/18 Stop Date: 08/02/18 Status: Discontinued Saline Flush 0.9% 10 ml, Route: IVP, Drug Form: INJ, Dosing Weight 98.409, kg, Q12H, Start date: 0 08/02/18 21:00:00 BOOK AGENT, Duration: 30 day, Stop date: 09/01/18 9:00:00 BOOK AGENT Notes: (Same as: BD Posiflush) Start Date: 08/02/18 Stop Date: 08/02/18 Status: Canceled Saline Flush 0.9% 10 ml, Route: IVP, Drug Form: INJ, Dosing Weight 98.409, kg, PRN, PRN Line Flush , Start date: 08/02/18 16:24:00 BOOK AGENT, Duration: 30 day, Stop date: 09/01/18 16:23 :00 BOOK AGENT Notes: (Same as: BD Posiflush) Start Date: 08/02/18 Stop Date: 08/02/18 Status: Discontinued tranexamic acid 1,000 mg, Route: IV, ONCALL, Dosing Weight 98.409, kg, Start date: 07/31/18 9:00 :00 BOOK AGENT, Duration: 30 day, Stop date: 08/30/18 8:59:00 BOOK AGENT Start Date: 07/31/18 Stop Date: 07/31/18 Status: Discontinued tranexamic acid (ANES) Route: IV, Drug form: INJ, ONCE, Stop date: 08/01/18 16:55:00 BOOK AGENT Start Date: 08/01/18 Stop Date: 08/01/18 Status: Completed tranexamic acid + Sodium Chloride 0.9% IV 100 mL 1,000 mg, 10 mL, Route: IV, ONCE, Dosing Weight 98.409, kg, Start date: 08/01/18 16:24:00 BOOK AGENT, Stop date: 08/01/18 16:24:00 BOOK AGENT Notes: (Same As: Cyklokapron) Start Date: 08/01/18 Stop Date: 08/01/18 Status: Completed tranexamic acid + Sodium Chloride 0.9% IV 100 mL 1,000 mg, 10 mL, Route: IV, ONCALL, Dosing Weight 98.409, kg, Start date: 13:00:00 BOOK AGENT, Duration: 1 day, Stop date: 08/02/18 12:59:00 BOOK AGENT Notes: (Same As: Cyklokapron) Start Date: 08/01/18 Stop Date: 08/02/18 Status: Discontinued Tylenol 325 mg, 1 tab, Route: PO, Drug form: TAB, Q3H, PRN Pain Score 7-10, Start date: 08/01/18 20:22:00 BOOK AGENT, Duration: 30 day, Stop date: 08/31/18 20:21:00 BOOK AGENT Notes: Do not exceed 4 gm/day. (Same as: Tylenol) Start Date: 08/01/18 Stop Date: 08/02/18 Status: Discontinued Tylenol 1,000 mg, Route: PO, ONCALL, Dosing Weight 98.409, kg, Start date: 08/01/18 13:0 0:00 BOOK AGENT, Duration: 30 day, Stop date: 08/31/18 12:59:00 BOOK AGENT Start Date: 08/01/18 Stop Date: 08/01/18 Status: Completed Tylenol 1,000 mg, Route: PO, ONCALL, Dosing Weight 98.409, kg, Start date: 07/31/18 9:00 :00 BOOK AGENT, Duration: 30 day, Stop date: 08/30/18 8:59:00 BOOK AGENT Start Date: 07/31/18 Stop Date: 07/31/18 Status: Completed valsartan 160 mg, 2 tab, Route: PO, Drug form: TAB, Daily, Start date: 08/02/18 9:00:00 CS T, Duration: 30 day, Stop date: 08/31/18 9:00:00 BOOK AGENT Notes: Same as Presley Start Date: 08/02/18 Stop Date: 08/02/18 Status: Discontinued vancomycin (ANES) Route: IV, Drug form: INJ, ONCE, Stop date: 08/01/18 15:13:00 BOOK AGENT Start Date: 08/01/18 Stop Date: 08/01/18 Status: Completed vancomycin (SCIP) + Sodium Chloride 0.9% IV 250 mL 1,000 mg, Route: IVPB, [id number], Dosing Weight 98.409, kg, Time Critical Medicati on, Start date: 08/02/18 2:00:00 BOOK AGENT, Duration: 2 doses or times, Stop date: 14:00:00 BOOK AGENT, Pharmacy to adjust dose for renal function, ABX Indication: Surgical Pr... Notes: TIME CRITICAL MEDICATION(Same As: Vancocin)Infusion rate< 1000 mg: infuse over 1 [id number] - 1500 mg: infuse over 1.5 [id number] - 2000 mg: infuse over 2 hours> 2001 mg: infuse over 2.5 hoursFor adult patients only: Round to nearest 250 mg per Medical Staff approval MEDICATION WASTE Product Size: 1000 mgProduct Wasted: ___ mg Start Date: 08/02/18 Stop Date: 08/02/18 Status: Completed vancomycin + Sodium Chloride 0.9% IV 250 mL 1,500 mg, Route: IVPB, ONCALL, Dosing Weight 98.409, kg, Start date: 08/01/18 13 :00:00 BOOK AGENT, Duration: 1 doses or times, ABX Indication: Surgical Prophylaxis Notes: TIME CRITICAL MEDICATION(Same As: Vancocin)Infusion rate< 1000 mg: infuse over 1 [id number] - 1500 mg: infuse over 1.5 [id number] - 2000 mg: infuse over 2 hours> 2001 mg: infuse over 2.5 hoursFor adult patients only: Round to nearest 250 mg per Medical Staff approval MEDICATION WASTE Product Size: 1000 mgProduct Wasted: ___ mg Start Date: 08/01/18 Stop Date: 08/02/18 Status: Discontinued vancomycin + Sodium Chloride 0.9% IV 250 mL 1,500 mg, Route: IVPB, ONCALL, Dosing Weight 98.409, kg, Start date: 07/31/18 9: 00:00 BOOK AGENT, Duration: 1 doses or times, ABX Indication: Surgical Prophylaxis Notes: TIME CRITICAL MEDICATION(Same As: Vancocin)Infusion rate< 1000 mg: infuse over 1 [id number] - 1500 mg: infuse over 1.5 [id number] - 2000 mg: infuse over 2 hours> 2001 mg: infuse over 2.5 hoursFor adult patients only: Round to nearest 250 mg per Medical Staff approval MEDICATION WASTE Product Size: 1000 mgProduct Wasted: ___ mg Start Date: 07/31/18 Stop Date: 07/31/18 Status: Discontinued Ventolin HFA 90 mcg/inh inhalation aerosol with adapter 180 microgram, 2 puff, Route: INHALATION, Drug Form: AERO/A, Dosing Weight 98.40 9, kg, QID, Start date: 08/01/18 21:00:00 BOOK AGENT, Duration: 30 day, Stop date: 08/12 07/29 17:00:00 BOOK AGENT Start Date: 08/01/18 Stop Date: 08/02/18 Status: Deleted Ventolin HFA 90 mcg/inh inhalation aerosol with adapter 2 puff, INHALATION, QID, 0 Refill(s) Start Date: 07/19/18 Status: Ordered Zofran 4 mg, 2 mL, Route: IV, Drug form: INJ, Q8H, Dosing Weight 98.409, kg, Start date : 08/01/18 20:30:00 BOOK AGENT, Duration: 3 doses or times, Stop date: 08/02/18 8:00:00 BOOK AGENT Notes: (Same as: Zofran) MEDICATION WASTE Product Size: 4 mgProduct Was ash: ___ mg Start Date: 08/01/18 Stop Date: 08/02/18 Status: Completed Zofran 4 mg, 2 mL, Route: IV, Drug form: INJ, Q6H, Dosing Weight 98.409, kg, PRN Nausea , Start date: 08/01/18 16:24:00 BOOK AGENT, Duration: 30 day, Stop date: 08/31/18 16:23 :00 BOOK AGENT Notes: (Same as: Zofran) MEDICATION WASTE Product Size: 4 mgProduct Was ash: ___ mg Start Date: 08/01/18 Stop Date: 08/02/18 Status: Discontinued Results BLOOD BANK RESULTS 1 2 3 Most recent to oldest [Reference Range]: A POS *Unknown* (07/31/18 9:25 AM) A POS *Unknown* (07/19/18 2:28 PM) ABO/Rh Negative (07/31/18 9:25 AM) Negative (07/19/18 2:28 PM) Antibody Scrn ELECTROLYTES 1 2 3 Most recent to oldest [Reference Range]: 141 mEq/L (08/02/18 5:26 AM) 142 mEq/L (08/01/18 6:28 PM) 138 mEq/L (07/19/18 2:28 PM) Sodium Lvl [135-145 mEq/L] 4.4 mEq/L (08/02/18 5:26 AM) 4.0 mEq/L (08/01/18 6:28 PM) 4.6 mEq/L (07/19/18 2:28 PM) Potassium Lvl [3.5-5.1 mEq/L] 107 mEq/L (08/02/18 5:26 AM) 109 mEq/L (08/01/18 6:28 PM) 106 mEq/L (07/19/18 2:28 PM) Chloride Lvl [95-109 mEq/L] 27 mEq/L (08/02/18 5:26 AM) 23 mEq/L *LOW* (08/01/18 6:28 PM) 24 mEq/L (07/19/18 2:28 PM) CO2 [24-32 mEq/L] 11.4 mEq/L (08/02/18 5:26 AM) 14.0 mEq/L (08/01/18 6:28 PM) 12.6 mEq/L (07/19/18 2:28 PM) AGAP [10.0-20.0 mEq/L] CHEM PANEL 1 2 3 Most recent to oldest [Reference Range]: 0.77 mg/dL (08/02/18 5:26 AM) 0.82 mg/dL (08/01/18 6:28 PM) 0.86 mg/dL (07/19/18 2:28 PM) Creatinine Lvl [0.50-1.40 mg/dL] 78 mL/min/1.73m2 1 *NA* (08/02/18 5:26 AM) 72 mL/min/1.73m2 2 *NA* (08/01/18 6:28 PM) 68 mL/min/1.73m2 3 *NA* (07/19/18 2:28 PM) eGFR 19 mg/dL (08/02/18 5:26 AM) 18 mg/dL (08/01/18 6:28 PM) 20 mg/dL (07/19/18 2:28 PM) BUN [7-22 mg/dL] 123 mg/dL *HI* (08/02/18 5:26 AM) 145 mg/dL *HI* (08/01/18 6:28 PM) 101 mg/dL *HI* (07/19/18 2:28 PM) Glucose Lvl [70-99 mg/dL] 8.2 mg/dL *LOW* (08/02/18 5:26 AM) 8.8 mg/dL (08/01/18 6:28 PM) 8.8 mg/dL (1/9/19 2:28 PM) Calcium Lvl [8.5-10.5 mg/dL] 1Result Comment: The eGFR is calculated using the CKD-EPI formula. In most young, healthy individuals the eGFR will be >90 mL/min/1.73m2. The eGFR declines with age. An eGFR of 60-89 may be normal in some populations, particularly the elderly, for whom the CKD-EPI formula has not been extensively validated. Use of the eGFR is not recommended in the following populations: Individuals with unstable creatinine concentrations, including patients and those with serious co-morbid conditions. Patients with extremes in muscle mass or diet. The data above are obtained from the National Kidney Disease Education Program ( NK[employer]) which additionally recommends that when the eGFR is used in patients with extremes of body mass index for purposes of drug dosing, the eGFR should be mul tiplied by the estimated BMI. 2Result Comment: The eGFR is calculated using the CKD-EPI formula. In most young, healthy individuals the eGFR will be >90 mL/min/1.73m2. The eGFR declines with age. An eGFR of 60-89 may be normal in some populations, particularly the elderly, for whom the CKD-EPI formula has not been extensively validated. Use of the eGFR is not recommended in the following populations: Individuals with unstable creatinine concentrations, including patients and those with serious co-morbid conditions. Patients with extremes in muscle mass or diet. The data above are obtained from the National Kidney Disease Education Program ( NKDEP) which additionally recommends that when the eGFR is used in patients with extremes of body mass index for purposes of drug dosing, the eGFR should be mul tiplied by the estimated BMI. 3Result Comment: The eGFR is calculated using the CKD-EPI formula. In most young, healthy individuals the eGFR will be >90 mL/min/1.73m2. The eGFR declines with age. An eGFR of 60-89 may be normal in some populations, particularly the elderly, for whom the CKD-EPI formula has not been extensively validated. Use of the eGFR is not recommended in the following populations: Individuals with unstable creatinine concentrations, including patients and those with serious co-morbid conditions. Patients with extremes in muscle mass or diet. The data above are obtained from the National Kidney Disease Education Program ( NKDEP) which additionally recommends that when the eGFR is used in patients with extremes of body mass index for purposes of drug dosing, the eGFR should be mul tiplied by the estimated BMI. URINE AND STOOL 1 2 3 Most recent to oldest [Reference Range]: Slight *ABN* (07/19/18 2:28 PM) UA Turbidity [Clear] Yellow *NA* (07/19/18 2:28 PM) UA Color [Yellow] 5.0 (07/19/18 2:28 PM) UA pH [5.0-8.0] 1.012 (07/19/18 2:28 PM) UA Spec Grav [<=1.030] Negative *NA* (07/19/18 2:28 PM) UA Glucose [Negative] Negative (07/19/18 2:28 PM) UA Blood [Negative] Negative *NA* (07/19/18 2:28 PM) UA Ketones [Negative] Negative (07/19/18 2:28 PM) UA Protein [Negative] <=1.0 mg/dL *NA* (07/19/18 2:28 PM) UA Urobilinogen [0.1-1.0 mg/dL] Negative *NA* (07/19/18 2:28 PM) UA Bili [Negative] Trace *ABN* (07/19/18 2:28 PM) UA Leuk Est [Negative] Negative (07/19/18 2:28 PM) UA Nitrite [Negative] 2 /HPF (07/19/18 2:28 PM) UA WBC [0-5 /HPF] 1 /HPF (07/19/18 2:28 PM) UA RBC [0-2 /HPF] Occasional /HPF *NA* (07/19/18 2:28 PM) UA Bacteria [None Seen /HPF] Few /LPF *NA* (07/19/18 2:28 PM) UA Sq Epi [Few /LPF] HEMATOLOGY 1 2 3 Most recent to oldest [Reference Range]: 12.5 K/CMM *HI* (08/02/18 5:26 AM) 12.0 K/CMM *HI* (08/01/18 6:28 PM) 7.7 K/CMM (07/19/18 2:28 PM) WBC [3.7-10.4 K/CMM] 3.42 M/CMM *LOW* (08/02/18 5:26 AM) 4.06 M/CMM *LOW* (08/01/18 6:28 PM) 3.97 M/CMM *LOW* (07/19/18 2:28 PM) RBC [4.20-5.40 M/CMM] 10.9 g/dL *LOW* (08/02/18 5:26 AM) 12.7 g/dL (08/01/18 6:28 PM) 12.7 g/dL (07/19/18 2:28 PM) Hgb [12.0-16.0 g/dL] 32.7 % *LOW* (08/02/18 5:26 AM) 38.6 % (08/01/18 6:28 PM) 37.9 % (07/19/18 2:28 PM) Hct [36.0-48.0 %] 95.4 fL (08/02/18 5:26 AM) 95.1 fL (08/01/18 6:28 PM) 95.4 fL (07/19/18 2:28 PM) MCV [80.0-98.0 fL] 31.7 pg *HI* (08/02/18 5:26 AM) 31.2 pg *HI* (08/01/18 6:28 PM) 32.0 pg *HI* (07/19/18 2:28 PM) MCH [27.0-31.0 pg] 33.2 g/dL (08/02/18 5:26 AM) 32.8 g/dL (08/01/18 6:28 PM) 33.5 g/dL (07/19/18 2:28 PM) MCHC [32.0-36.0 g/dL] 13.5 % (08/02/18 5:26 AM) 13.8 % (08/01/18 6:28 PM) 13.9 % (07/19/18 2:28 PM) RDW [11.5-14.5 %] 12.8 fL *HI* (08/02/18 5:26 AM) 12.3 fL *HI* (08/01/18 6:28 PM) 11.9 fL *HI* (07/19/18 2:28 PM) MPV [7.4-10.4 fL] 129 K/CMM *LOW* (08/02/18 5:26 AM) 156 K/CMM (08/01/18 6:28 PM) 187 K/CMM (07/19/18 2:28 PM) Platelet [133-450 K/CMM] 84.4 % *HI* (08/02/18 5:26 AM) 67.0 % (07/19/18 2:28 PM) Segs [45.0-75.0 %] 8.7 % *LOW* (08/02/18 5:26 AM) 21.9 % (07/19/18 2:28 PM) Lymphocytes [20.0-40.0 %] 6.5 % (08/02/18 5:26 AM) 7.1 % (07/19/18 2:28 PM) Monocytes [2.0-12.0 %] 3.1 % (07/19/18 2:28 PM) Eosinophils [0.0-4.0 %] 0.4 % (08/02/18 5:26 AM) 0.9 % (07/19/18 2:28 PM) Basophils [0.0-1.0 %] 10.6 K/CMM *HI* (08/02/18 5:26 AM) 5.1 K/CMM (07/19/18 2:28 PM) Neutrophils # [1.5-8.1 K/CMM] 1.1 K/CMM (08/02/18 5:26 AM) 1.7 K/CMM (07/19/18 2:28 PM) Lymphocytes # [1.0-5.5 K/CMM] 0.8 K/CMM (08/02/18 5:26 AM) 0.5 K/CMM (07/19/18 2:28 PM) Monocytes # [0.0-0.8 K/CMM] 0.2 K/CMM (07/19/18 2:28 PM) Eosinophils # [0.0-0.5 K/CMM] 0.1 K/CMM (07/19/18 2:28 PM) Basophils # [0.0-0.2 K/CMM] 13.0 seconds (07/19/18 2:28 PM) PT [12.0-14.7 seconds] 1.00 (07/19/18 2:28 PM) INR [0.85-1.17] 30.7 seconds (07/19/18 2:28 PM) PTT [22.9-35.8 seconds] Immunizations No data available for this section [...] No entered on: 08/01/18 Assessment and Plan Extracted from: Title: Clinical Document Author: Phan Zamora MD Date: 08/02/18 Progress Daily [facility] Completed: Jul, 13:45 by Phan Zamora MD RM: 243 - 1P, SE [id number] ABDUL [id number] (: 1945) F Attending: Phan Zamora MDPhone: Service: Orthopedic Reason for Admission: UNK Working DRG: Code status: None Specified=FULL CODECurrent diet: Isolation: No Isolation/Standard Precautions Allergies: sulfa drugs, iodine, shellfish SUBJECTIVE moderate pain, no other complaints OBJECTIVE dresisng dry LT I m/l/p/d/fdws +GS TA FHL EHL CR brisk no clinical signs of DVT ASSESSMENT & EXAM s/p Right TKa revision, POD#1 PLAN & TREATMENT iv abx prophylaxis VSS, Hg sttable, acute blood loss anmeia lovenox for DVT prophylaxis OOB w/ PT d/c home today 24hr Labs 08/02 0526 Glucose Yeo057 H BUN19 Creatinine Lvl0.77 Sodium Jzf065 Potassium Lvl4.4 Chloride Vsg228 CO227 AGAP11.4 Calcium Lvl8.2 L eGFR78 WBC12.5 H RBC3.42 L Hgb10.9 L Hct32.7 L MCV95.4 MCH31.7 H MCHC33.2 RDW13.5 Qbtafhqe815 L MPV12.8 H Segs84.4 H Monocytes6.5 Lymphocytes8.7 L Basophils0.4 Neutrophils #10.6 H Lymphocytes #1.1 Monocytes #0.8 08/01 1828 Glucose Nkj104 H BUN18 Creatinine Lvl0.82 Sodium Aoy650 Potassium Lvl4.0 Chloride Wwe708 CO223 L AGAP14.0 Calcium Lvl8.8 eGFR72 WBC12.0 H RBC4.06 L Hgb12.7 Hct38.6 MCV95.1 MCH31.2 H MCHC32.8 RDW13.8 Kqjamxsd997 MPV12.3 H VitalsTmp(F)[id number] 08/02 08:3098.406725/076716--- 08/02 07:43 1897 21% 08/02 04:0098.990114/332519--- 08/02 00:621966147/647476--- 08/01 23:19-------148/74-------- 24 Hr Tmax: 98.2F (36.78c) at 08/02 08:30Vital Signs are the last 5 in the past 48 hours. DateWt(kg)Wt(lb)Ht(cm)Ht(in)Method 08/01 98.64 217.37995.64 66.00Mea/Sta 07/19 (initial) 98.41 216.50Measured 07/19167.64 66.00Stated I&ORecordInOutBal 07/2323hr Tot 2 0 2 07/2223hr Tot 1435 50 1385 Medications (48) Active Scheduled Meds (10): 08/02/18 albuterol 2.49 mg NEB RQID 08/02/18 budesonide (Pulmicort Respules) 0.25 mg NEB RBID 08/01/18 ceFAZolin + sterile water 10 mL (ceFAZolin (SCIP) + sterile water 10 mL) 1 gm IVP ABXQ8H 200 ml/hr 08/01/18 enoxaparin 40 mg SUB-Q ioouU85H 08/02/18 hydrochlorothiazide 12.5 mg PO Daily 08/02/18 levothyroxine 112 microgram PO Q630AM 08/01/18 metoprolol (metoprolol tartrate) 25 mg PO Q12H 08/02/18 sodium chloride (Saline Flush 0.9%) 10 ml IVP Q12H 08/02/18 valsartan 160 mg PO Daily 08/02/18 vancomycin + Sodium Chloride 0.9% IV 250 mL (vancomycin (SCIP) + Sodium Chloride 0.9% IV 250 mL) 1,000 mg IVPB [id number] 250 ml/hr Unscheduled Meds (5): 08/01/18 ceFAZolin + sterile water 20 mL 2 gm IVPB ONCALL 200 ml/hr 08/01/18 ropivacaine (MILLICENT Pericapsular INJ) 100 mL InFILtration(local) ONCALL 08/01/18 ropivacaine (MILLICENT Pericapsular INJ) 100 mL InFILtration(local) ONCALL 08/01/18 tranexamic acid + Sodium Chloride 0.9% IV 100 mL 1,000 mg IV ONCALL 440 ml/hr 08/01/18 vancomycin + Sodium Chloride 0.9% IV 250 mL 1,500 mg IVPB ONCALL 166.67 ml/hr PRN Meds (15): 08/01/18 Dextrose 50% in Water IV (Dextrose 50% Syringe) 12.5 gm IVP PRN 08/01/18 Dextrose 50% in Water IV (Dextrose 50% Syringe) 25 gm IVP PRN 08/01/18 acetaminophen-hydrocodone ([place] 5/325 oral tablet) 1 tab PO Q3H 08/01/18 acetaminophen-hydrocodone ([place] 10/325 oral tablet) 1 tab PO Q3H 08/01/18 acetaminophen (Tylenol) 325 mg PO Q3H 08/01/18 glucagon 1 mg IM PRN 08/01/18 hydrALAZINE 10 mg IV Q4H 08/01/18 insulin lispro 2 unit SUB-Q TID-Before Meals 08/01/18 insulin lispro 4 unit SUB-Q TID-Before Meals 08/01/18 insulin lispro 6 unit SUB-Q TID-Before Meals 08/01/18 insulin lispro 8 unit SUB-Q TID-Before Meals 08/01/18 insulin lispro 10 unit SUB-Q TID-Before Meals 08/01/18 ondansetron (Zofran) 4 mg IV Q6H 08/01/18 oxyCODONE (Roxicodone) 10 mg PO Q3H 08/02/18 sodium chloride (Saline Flush 0.9%) 10 ml IVP PRN One Time Meds (17): 08/01/18 (Discontinued) albuterol-ipratropium (albuterol-ipratropium 2.5-0.5 mg inhalation solution) 3 mL NEB ONCE (Completed) ceFAZolin (ceFAZolin (ANES)) IV ONCE (Completed) dexamethasone (dexamethasone (ANES)) IV ONCE (Completed) fentaNYL (fentaNYL (ANES)) IV ONCE (Completed) fentaNYL (fentaNYL (ANES)) IV ONCE (Completed) glycopyrrolate (glycopyrrolate (ANES)) IV ONCE (Completed) glycopyrrolate (glycopyrrolate (ANES)) IV ONCE (Completed) ketOROLAC (ketOROLAC (ANES)) IV ONCE (Completed) lidocaine (lidocaine (ANES)) IV ONCE (Completed) neostigmine (neostigmine (ANES)) IV ONCE (Completed) ondansetron (ondansetron (ANES)) IV ONCE (Completed) phenylephrine (phenylephrine (ANES)) IV ONCE (Completed) propofol (propofol (ANES)) IV ONCE (Completed) rocuronium (rocuronium (ANES)) IV ONCE 08/01/18 (Completed) tranexamic acid + Sodium Chloride 0.9% IV 100 mL 1,000 mg IV ONCE 440 ml/hr (Completed) tranexamic acid (tranexamic acid (ANES)) IV ONCE (Completed) vancomycin (vancomycin (ANES)) IV ONCE Continuous Infusions (1): 08/01/18 Sodium Chloride 0.45% IV 1,000 mL (1/2 NS 1,000 mL) 1,000 mL 75 ml/hr Extracted from: Title: Clinical Document Author: Phan Zamora MD Date: 08/02/18 Admit Date: 08/01/2018 Discharge Date: 08/02/2018 Reason for Hospitalization: s/p Right TKA revision Patient was admitted to the floor s/p above procedure. Pt tolerated the surgery well and vital signs were stable in the post operative period. Pt recieved 24 hr abx prohlyaxis, DVT prophlaxis was started within 23 hrs of surgery, and was cleared for d/c home by PT on POD# 1. Discharge Dx: Right TKA revision for instablity Diabetes Obesity Acute Blood Loss Anemia Discharge Instructions WBAT no ROM restrictions f/u Dr. Phan Zamora on 08/10/2018 Discharge Medications Lovenox 40 mg SubQ Q24hr for 10 days post-op Percocet 10/325 1-2 tab PO Q4-6Hr PRN Pain Continue all home medcations Contact [facility] if: Fever > 101.5 Increasing pain Redness along incision purulent drainage Extracted from: Title: Clinical Document Author: Phan Zamora MD Date: 07/30/18 CHIEF COMPLAINT: Right knee pain. HISTORY OF PRESENT ILLNESS: The patient is a 73-year-old female with isolated right knee pain. It is going on for the past several years. The patient has a history of total knee arthroplasty 10 years ago. The patient otherwise is doing well. The patient has diffuse pain. She has now constant soreness. The patient denies pain with initiation pattern. The patient's pain is alleviated by rest, aggravated by touch, and progressive activity. PAST MEDICAL HISTORY: Significant for arthritis, low back pain, gallbladder, and hypertension. PAST SURGICAL HISTORY: Significant for back surgery, hip surgery, knee surgery, unable to specify. ALLERGIES: NO KNOWN DRUG ALLERGIES. CURRENT MEDICATIONS: Valsartan, levothyroxine, metoprolol, tramadol. SOCIAL HISTORY: The patient denies smoking, alcohol, or drug use. FAMILY HISTORY: Positive for diabetes, hypertension, coronary artery disease, cancer and stroke. REVIEW OF SYSTEMS: My 12-system review of systems questionnaire was completed and reviewed by myself. Systems evaluated include general, skin, HEENT, psychiatric, pulmonary, genitourinary, gastrointestinal, musculoskeletal, lymphatics, endocrine, cardiovascular, and neurologic. Pertinent positive for musculoskeletal. Please see HPI for further details. PHYSICAL EXAMINATION: GENERAL: The patient demonstrates normal body habitus, in no acute distress. PSYCHIATRIC: Alert and oriented x3. Demonstrates proper mood and affect. ABDOMEN: Soft, nontender, and nondistended. EYES: Sclerae are normal. SKIN: No evidence of soft tissue swelling, ecchymosis, or bruising. CARDIOVASCULAR: 1+ DP pulses bilaterally. NEUROLOGIC: Intact bilateral hips, quads, hamstrings, TA, EHL, and GS. Light touch is intact in L2 through S1 dermatomal distributions. 1+ DTRs bilaterally. EXTREMITIES: The patient's right knee demonstrates 2+ varus valgus laxity and mid flexion 90 degrees of flexion. Also, has 1+ varus valgus laxity in full extension. The patient has severe pain with stress. Pain on passive range of motion X-RAYS: The patient's previous x-rays at [facility] demonstrates retained total knee arthroplasty. No evidence of radiolucent lines, acceptable component positioning. The patient's right knee series evaluated where 3 views. I also reviewed the images as well as triple phase bone scan, which demonstrates increased signal along the tibial component. The patient's previous workup, aspiration and cultures were negative. ASSESSMENT: The patient has right painful total knee arthroplasty, right knee instability ICD-10 T84.84XA and TX84.022A. PLAN: Right total knee arthroplasty revision The patient is a candidate for tranexamic acid, Toradol, steroid taper. Lovenox for DVT prophylaxis. Ancef and vancomycin for antibiotic prophylaxis. The patient has [employer] or rotating platform instrumentation. Risks and benefits discussed at length with the patient, risks of surgery, bleeding, pain, infection, damage to nearby structures, vessel, tendons, nerves, possible need for further surgery, possibility of blood clots in legs or lungs, stroke, heart attack, and .
--- OUTSIDE RECORDS SUMMARY | 2018-10-11 16:40 | XMS REPORT | Continuity of Care Document ---
Author Author [facility] Interface Address Unknown Phone Unavailable Problems Problem Status Onset Date Classification Date Reported Comments Source RT KNEE Active 07/11/2018 [facility] [place] UNK Active 06/29/2018 [facility] DX: T84.84XA=PAIN DUE TO INTERNAL ORTHOP Active 05/17/2018 [facility] Presence of right artificial knee joint 03/14/2018 09/24/2018 [facility] M25.561, Z96.651 Active 03/01/2018 [facility] Z12.31 - ENCNTR SCREEN MAMMOGRAM FOR MA Active 04/27/2016 [facility] ROTUINE Active 05/23/2013 [facility] ROUTINE Active 05/23/2013 [facility] 793.80 Active 06/10/2011 [facility] 793.80 - ABL MAMMOGRAM N Active 06/07/2011 [facility] Pain in right knee [facility], [facility] COPD (<span ID="[id number]">Confirmed</span>) [facility] HTN (<span ID="[id number]">Confirmed</span>) Active [facility]/24[facility]24[facility] INST[facility] OF INTERNAL RIGHT KNEE PROST Active [facility] Medications Medication Details Route Status Patient Instructions Ordering Provider Order Date Source Saline Flush 0.9% 10 ml, Route: IVP, Drug Form: INJ, Dosing Weight 98.409, kg, Q12H, Start date: 08/02/18 21:00:00 [employer], Duration: 30 day, Stop date: 09/01/18 9:00:00 CSTNotes: (Same as: BD Posiflush) Inactive 08/03/2018 [facility] Saline Flush 0.9% 10 ml, Route: IVP, Drug Form: INJ, Dosing Weight 98.409, kg, PRN, PRN Line Flush, Start date: 08/02/18 16:24:00 [employer], Duration: 30 day, Stop date: 09/01/18 16:23:00 CSTNotes: (Same as: BD Posiflush) Inactive 08/02/2018 [facility] Acetaminophen 325 MG / Oxycodone Hydrochloride 10 MG Oral Tablet [Percocet 10/325] 1 tab, PO, Q4H, PRN for pain, # 90 tab, 0 Refill(s), given to patient No Longer Active 08/02/2018 [facility] 0.4 ML Enoxaparin sodium 100 MG/ML Prefilled Syringe [Lovenox] 40 mg, SUB-Q, Daily, X 9 day, # 9 ea, 0 Refill(s) Active 08/02/2018 [facility] Breo Ellipta 100 mcg-25 mcg inhalation powder 1 puff, Route: INHALATION, Drug Form: PWDR, Dosing Weight 98.409, kg, Daily, Start date: 08/02/18 9:00:00 [employer], Duration: 30 day, Stop date: 08/31/18 9:00:00 [employer] Inactive 08/02/2018 [facility] valsartan 160 mg, 2 tab, Route: PO, Drug form: TAB, Daily, Start date: 08/02/18 9:00:00 [employer], Duration: 30 day, Stop date: 08/31/18 9:00:00 CSTNotes: Same as Diovan Inactive 08/02/2018 [facility] Hydrochlorothiazide 12.5 MG / valsartan 160 MG Oral Tablet 1 tab, Route: PO, Drug Form: TAB, Dosing Weight 98.409, kg, Daily, Start date: 08/02/18 9:00:00 [employer], Duration: 30 day, Stop date: 08/31/18 9:00:00 [employer] Inactive 08/02/2018 [facility] hydrochlorothiazide 12.5 mg, 1 tab, Route: PO, Drug form: TAB, Daily, Start date: 08/02/18 9:00:00 [employer], Duration: 30 day, Stop date: 08/31/18 9:00:00 CSTNotes: (Same as: Hydrodiuril). Give with food. Inactive 08/02/2018 [facility] Pulmicort Respules 0.25 mg, 2 mL, Route: NEB, Drug form: SUSP, RBID, Start date: 08/02/18 8:00:00 [employer], Duration: 30 day, Stop date: 08/31/18 20:00:00 CSTNotes: (Same As: Pulmicort respule). Inactive 08/02/2018 [facility] albuterol 2.49 mg, 3 mL, Route: NEB, Drug form: SOLN, RQID, Start date: 08/02/18 7:00:00 [employer], Duration: 30 day, Stop date: 08/31/18 19:00:00 CSTNotes: SEE RT DOCUMENTATION (Same as: Proventil) Inactive 08/02/2018 [facility] Thyroxine 112 microgram, 1 tab, Route: PO, Drug form: TAB, [id number], Dosing Weight 98.409, kg, Start date: 08/02/18 6:30:00 [employer], Duration: 30 day, Stop date: 08/31/18 6:30:00 CSTNotes: Take 1 hour before or 2 hours after meal; Enteral feeds may interefere with the absorption of this medication.(Same as:Levothroid) Inactive 08/02/2018 [facility] Vancomycin 1,000 mg, Route: IVPB, [id number], Dosing Weight 98.409, kg, Time Critical Medication, Start date: 08/02/18 2:00:00 [employer], Duration: 2 doses or times, Stop date: 08/02/18 14:00:00 [employer], Pharmacy to adjust dose for renal function, ABX Indication: Surgical Pr...Notes: TIME CRITICAL MEDICATION (Same As: Vancocin) Infusion rate 2001 mg: infuse over 2.5 hours For adult patients only: Round to nearest 250 mg per Medical Staff approval MEDICATION WASTE Product Size: 1000 mg Product Wasted: ___ mg Inactive 08/02/2018 [facility] Ventolin HFA 90 mcg/inh inhalation aerosol with adapter 180 microgram, 2 puff, Route: INHALATION, Drug Form: AERO/A, Dosing Weight 98.409, kg, QID, Start date: 08/01/18 21:00:00 [employer], Duration: 30 day, Stop date: 08/31/18 17:00:00 [employer] No Longer Active 08/02/2018 [facility] metoprolol tartrate 25 mg, 1 tab, Route: PO, Drug form: TAB, Q12H, Dosing Weight 98.409, kg, Start date: 08/01/18 21:00:00 [employer], Duration: 30 day, Stop date: 08/31/18 9:00:00 CSTNotes: (Same as: Lopressor) No Longer Active 08/02/2018 [facility] Zofran 4 mg, 2 mL, Route: IV, Drug form: INJ, Q8H, Dosing Weight 98.409, kg, Start date: 08/01/18 20:30:00 [employer], Duration: 3 doses or times, Stop date: 08/02/18 8:00:00 CSTNotes: (Same as: Zofran) MEDICATION WASTE Product Size: 4 mg Product Wasted: ___ mg No Longer Active 08/02/2018 [facility] Hydralazine 10 mg, 0.5 mL, Route: IV, Drug form: INJ, Q4H, Dosing Weight 98.409, kg, PRN Hypertension, Start date: 08/01/18 20:29:00 [employer], Duration: 30 day, Stop date: 08/31/18 20:28:00 CSTNotes: (Same as: Apresoline) Push over 5 minutes No Longer Active 08/02/2018 [facility] Tylenol 325 mg, 1 tab, Route: PO, Drug form: TAB, Q3H, PRN Pain Score 7-10, Start date: 08/01/18 20:22:00 [employer], Duration: 30 day, Stop date: 08/31/18 20:21:00 CSTNotes: Do not exceed 4 gm/day. (Same as: Tylenol) No Longer Active 08/02/2018 [facility] Roxicodone 10 mg, 2 tab, Route: PO, Drug form: TAB, Q3H, PRN Pain Score 7-10, Start date: 08/01/18 20:22:00 [employer], Duration: 30 day, Stop date: 08/31/18 20:21:00 CSTNotes: (Same as: Roxicodone) No Longer Active 08/02/2018 [facility] Cefazolin 1 gm, Route: IVP, [id number], Dosing Weight 98.409, kg, Start date: 08/01/18 18:00:00 [employer], Duration: 3 doses or times, Stop date: 08/02/18 14:00:00 [employer], ABX Indication: Surgical ProphylaxisNotes: (Same As: Chen Diamond) MEDICATION WASTE Product Size: 1000 mg Product Wasted: ___ mg No Longer Active 08/02/2018 [facility] Acetaminophen 1,000 mg, Route: PO, Drug form: TAB, ONCE, Dosing Weight 98.409, kg, PRN Pain Score 1-3, Start date: 08/01/18 17:09:00 [employer] Inactive 08/01/2018 [facility] Hydralazine 10 mg, Route: IVP, Q20Min, Dosing Weight 98.409, kg, PRN Elevated BP, Start date: 08/01/18 17:09:00 [employer], Duration: 2 doses or times, Stop date: Limited # of times Inactive 08/01/2018 [facility] Labetalol 10 mg, Route: IVP, Q5Min, Dosing Weight 98.409, kg, PRN Elevated BP, Start date: 08/01/18 17:09:00 [employer], Duration: 5 doses or times, Stop date: Limited # of times Inactive 08/01/2018 [facility] Diphenhydramine 12.5 mg, Route: IVP, Drug form: INJ, Q6H, Dosing Weight 98.409, kg, PRN Itching, Start date: 08/01/18 17:09:00 [employer], Duration: 30 day, Stop date: 08/31/18 17:08:00 [employer] Inactive 08/01/2018 [facility] Ondansetron 4 mg, Route: IVP, ONCE, Dosing Weight 98.409, kg, PRN Nausea & Vomiting, Start date: 08/01/18 17:09:00 [employer] Inactive 08/01/2018 [facility] Oxycodone 5 mg, Route: PO, Drug form: TAB, Q4H, Dosing Weight 98.409, kg, PRN Pain Score 4-6, Start date: 08/01/18 17:09:00 [employer], Duration: 30 day, Stop date: 08/31/18 17:08:00 [employer] Inactive 08/01/2018 [facility] Flumazenil 0.2 mg, Route: IVP, PRN, Dosing Weight 98.409, kg, PRN Benzodiazepine Reversal, Initial dose, Start date: 08/01/18 17:09:00 [employer], Duration: 30 day, Stop date: 08/31/18 17:08:00 [employer] Inactive 08/01/2018 [facility] Hydromorphone 0.5 mg, Route: IVP, Q5Min, Dosing Weight 98.409, kg, PRN Pain Score 7-10, Start date: 08/01/18 17:09:00 [employer], Duration: 4 doses or times, Stop date: Limited # of times Inactive 08/01/2018 [facility] Fentanyl 50 microgram, Route: IVP, Q5Min, Dosing Weight 98.409, kg, PRN Pain Score 7-10, Priority: Routine, Start date: 08/01/18 17:09:00 [employer], Duration: 2 doses or times, Stop date: Limited # of times Inactive 08/01/2018 [facility] Naloxone 0.4 mg, Route: IVP, Q2MIN, Dosing Weight 98.409, kg, PRN Narcotic Reversal, Start date: 08/01/18 17:09:00 [employer], Duration: 8 doses or times, Stop date: Limited # of times Inactive 08/01/2018 [facility] Enoxaparin 40 mg, 0.4 mL, Route: SUB-Q, Drug form: INJ, [id number], Dosing Weight 98.409, kg, Start date: 08/01/18 17:00:00 [employer], Duration: 30 day, Stop date: 08/30/18 15:00:00 CSTNotes: (Same as: Lovenox) No Longer Active 08/01/2018 [facility] ketOROLAC (ANES) IV, ONCE Inactive 08/01/2018 [facility] glycopyrrolate (ANES) Route: IV, Drug form: INJ, ONCE, Stop date: 08/01/18 16:55:00 [employer] Inactive 08/01/2018 [facility] fentaNYL (ANES) Route: IV, Drug form: INJ, ONCE, Stop date: 08/01/18 16:55:00 [employer] Inactive 08/01/2018 [facility] neostigmine (ANES) Route: IV, Drug form: INJ, ONCE, Stop date: 08/01/18 16:55:00 [employer] Inactive 08/01/2018 [facility] tranexamic acid (ANES) Route: IV, Drug form: INJ, ONCE, Stop date: 08/01/18 16:55:00 [employer] Inactive 08/01/2018 [facility] Insulin Lispro 6 unit, 0.06 mL, Route: SUB-Q, Drug form: SOLN, TID-Before Meals, Dosing Weight 98.409, kg, PRN Blood Glucose Results, Start date: 08/01/18 16:24:00 [employer], Duration: 30 day, Stop date: 08/31/18 16:23:0 0 CSTNotes: (Same as: Humalog ) Roll in palms of hands gently; Do not shake `vigorously. "Single Patient Use Only " WASTE: F/P - Black; E - Municipal Trash Bin Stable for 28 days at room temperature. Expires in days from Date No Longer Active 08/01/2018 [facility] Zofran 4 mg, 2 mL, Route: IV, Drug form: INJ, Q6H, Dosing Weight 98.409, kg, PRN Nausea, Start date: 08/01/18 16:24:00 [employer], Duration: 30 day, Stop date: 08/31/18 16:23:00 CSTNotes: (Same as: Zofran) MEDICATION WASTE Product Size: 4 mg Product Wasted: ___ mg No Longer Active 08/01/2018 [facility] Acetaminophen 325 MG / Hydrocodone Bitartrate 5 MG Oral Tablet [[place] 5/325] 1 tab, Route: PO, Drug Form: TAB, Dosing Weight 98.409, kg, Q3H, PRN Pain Score 1-3, Start date: 08/01/18 16:24:00 [employer], Duration: 30 day, Stop date: 08/31/18 16:23:00 CSTNotes: (Same as: [place] 325/5) Do not exceed 4gm/day of acetaminophen. No Longer Active 08/01/2018 [facility] Tranexamic Acid 1,000 mg, 10 mL, Route: IV, ONCE, Dosing Weight 98.409, kg, Start date: 08/01/18 16:24:00 [employer], Stop date: 08/01/18 16:24:00 CSTNotes: (Same As: Cyklokapron) Inactive 08/01/2018 [facility] Acetaminophen 325 MG / Hydrocodone Bitartrate 10 MG Oral Tablet [[place] 10/325] 1 tab, Route: PO, Drug Form: TAB, Dosing Weight 98.409, kg, Q3H, PRN Pain Score 4-6, Start date: 08/01/18 16:24:00 [employer], Duration: 30 day, Stop date: 08/31/18 16:23:00 CSTNotes: Do not exceed 4gm/day of acetaminophen. (Same as: [place] 325/10) No Longer Active 08/01/2018 [facility] Acetaminophen 325 MG / Oxycodone Hydrochloride 10 MG Oral Tablet [Percocet 10/325] 1 tab, Route: PO, Drug Form: TAB, Dosing Weight 98.409, kg, Q3H, PRN Pain Score 7-10, Start date: 08/01/18 16:24:00 [employer], Duration: 30 day, Stop date: 08/31/18 16:23:00 [employer] Inactive 08/01/2018 [facility] Dextrose 50% Syringe 25 gm, 50 mL, Route: IVP, Drug Form: INJ, Dosing Weight 98.409, kg, PRN, PRN Blood Glucose Results, Start date: 08/01/18 16:24:00 [employer], Duration: 30 day, Stop date: 08/31/18 16:23:00 [employer] No Longer Active 08/01/2018 [facility] Glucagon 1 mg, Route: IM, Drug form: PDR/INJ, PRN, Dosing Weight 98.409, kg, PRN Blood Glucose Results, Start date: 08/01/18 16:24:00 [employer], Duration: 30 day, Stop date: 08/31/18 16:23:00 [employer] No Longer Active 08/01/2018 [facility] 1/2 NS 1,000 mL 1,000 mL, Rate: 75 ml/hr, Infuse over: 13.3 hr, Route: IV, Dosing Weight 98.409 kg, Total Volume: 1,000, Start date: 08/01/18 16:24:00 [employer], Duration: 30 day, Stop date: 08/31/18 16:23:00 [employer], 2.17, m2 No Longer Active 08/01/2018 [facility] fentaNYL (ANES) Route: IV, Drug form: INJ, ONCE, Stop date: 08/01/18 15:43:00 [employer] Inactive 08/01/2018 [facility] phenylephrine (ANES) Route: IV, Drug form: INJ, ONCE, Stop date: 08/01/18 15:18:00 [employer] Inactive 08/01/2018 [facility] glycopyrrolate (ANES) Route: IV, Drug form: INJ, ONCE, Stop date: 08/01/18 15:18:00 [employer] Inactive 08/01/2018 [facility] dexamethasone (ANES) Route: IV, Drug form: INJ, ONCE, Stop date: 08/01/18 15:18:00 [employer] Inactive 08/01/2018 [facility] ondansetron (ANES) Route: IV, Drug form: INJ, ONCE, Stop date: 08/01/18 15:18:00 [employer] Inactive 08/01/2018 [facility] lidocaine (ANES) Route: IV, Drug form: INJ, ONCE, Stop date: 08/01/18 15:13:00 [employer] Inactive 08/01/2018 [facility] propofol (ANES) Route: IV, Drug form: INJ, ONCE, Stop date: 08/01/18 15:13:00 [employer]ICAL [employer] Inactive 08/01/2018 [facility] vancomycin (ANES) Route: IV, Drug form: INJ, ONCE, Stop date: 08/01/18 15:13:00 [employer] Inactive 08/01/2018 [facility] ceFAZolin (ANES) Route: IV, Drug form: INJ, ONCE, Stop date: 08/01/18 15:13:00 [employer]ICAL [employer]PENTER Inactive 08/01/2018 [facility] rocuronium (ANES) Route: IV, Drug form: INJ, ONCE, Stop date: 08/01/18 15:13:00 [employer]ICAL [employer]PENTER Inactive 08/01/2018 [facility] Lactated Ringers Injection IV (ANES) 1000 mL Route: IV, Total Volume: 1,000, Start date: 08/01/18 14:22:00 [employer]ICAL [employer], Stop date: 08/01/18 15:22:00 AC[employer]STICAL CARPENTER Inactive 08/01/2018 [facility] ropivacaine 100 mL, Route: InFILtration(local), Drug Form: INJ, Dosing Weight 98.409, kg, ONCALL, Start date: 08/01/18 14:00:00 [employer]ICAL [employer]PENTER, Duration: 1 day, Stop date: 08/02/18 13:59:00 CSTNotes: NOT FOR IV use E ach mL contains: Ropivacaine 2.46 mg, Epinephrine 0.005 mg, Clonidine 0.0008 mg and Ketorolac 0.3 mg in Sodium Chloride No Longer Active 08/01/2018 [facility] Albuterol 0.833 MG/ML / Ipratropium Aguirre 0.167 MG/ML Inhalant Solution 3 mL, Route: NEB, Dosing Weight 98.409, kg, ONCE, STAT, Start date: 08/01/18 13:30:00 [employer]ICAL [employer], Stop date: 08/01/18 13:30:00 [employer]ICAL [employer] Inactive 08/01/2018 [facility] Calcium Chloride 0.0014 MEQ/ML / Potassium Chloride 0.004 MEQ/ML / Sodium Chloride 0.103 MEQ/ML / Sodium Lactate 0.028 MEQ/ML Injectable Solution 1,000 mL, Rate: 25 ml/hr, Infuse over: 40 hr, Route: IV, Dosing Weight 98.409 kg, Total Volume: 1,000, Start date: 08/01/18 13:30:00 [employer], Duration: 30 day, Stop date: 08/31/18 13:29:00 [employer]ICAL CARPENTER, 2.17, m2 Inactive 08/01/2018 [facility] Vancomycin 1,500 mg, Route: IVPB, ONCALL, Dosing Weight 98.409, kg, Start date: 08/01/18 13:00:00 [employer], Duration: 1 doses or times, ABX Indication: Surgical ProphylaxisNotes: TIME CRITICAL MEDICATION (Same As: Vanc ocin) Infusion rate 2001 mg: infuse over 2.5 hours For adult patients only: Round to nearest 250 mg per Medical Staff approval MEDICATION WASTE Product Size: 1000 mg Product Wasted: ___ mg No Longer Active 08/01/2018 [facility] Oxycontin 10 mg, Route: PO, Drug form: ERTAB, ONCALL, Dosing Weight 98.409, kg, Start date: 08/01/18 13:00:00 [employer]ICAL [employer], Duration: 30 day, Stop date: 08/31/18 12:59:00 [employer]ICAL [employer]PENTER Inactive 08/01/2018 [facility] Cefazolin 2 gm, Route: IVPB, ONCALL, Dosing Weight 98.409, kg, Start date: 08/01/18 13:00:00 [employer], Duration: 1 doses or times, ABX Indication: Surgical ProphylaxisNotes: (Same As: Chen Diamond) MEDICATI ON WASTE Product Size: 1000 mg Product Wasted: ___ mg No Longer Active 08/01/2018 [facility] Tylenol 1,000 mg, Route: PO, ONCALL, Dosing Weight 98.409, kg, Start date: 08/01/18 13:00:00 [employer], Duration: 30 day, Stop date: 08/31/18 12:59:00 [employer]ICAL [employer]PENTER Inactive 08/01/2018 [facility] Tranexamic Acid 1,000 mg, 10 mL, Route: IV, ONCALL, Dosing Weight 98.409, kg, Start date: 08/01/18 13:00:00 [employer]ICAL [employer]PENTER, Duration: 1 day, Stop date: 08/02/18 12:59:00 CSTNotes: (Same As: Cyklokapron) No Longer Active 08/01/2018 [facility] gabapentin 300 mg, Route: PO, ONCALL, Dosing Weight 98.409, kg, Start date: 08/01/18 13:00:00 [employer]ICAL [employer], Duration: 30 day, Stop date: 08/31/18 12:59:00 [employer]ICAL [employer]PENTER Inactive 08/01/2018 [facility] ropivacaine 100 mL, Route: InFILtration(local), Drug Form: INJ, Dosing Weight 98.409, kg, ONCALL, Start date: 08/01/18 13:00:00 [employer]ICAL [employer], Duration: 1 doses or timesNotes: NOT FOR IV use Each mL contains: Ropiva libertad 2.46 mg, Epinephrine 0.005 mg, Clonidine 0.0008 mg and Ketorolac 0.3 mg in Sodium Chloride No Longer Active 08/01/2018 [facility] Tranexamic Acid 1,000 mg, Route: IV, ONCALL, Dosing Weight 98.409, kg, Start date: 07/31/18 9:00:00 [employer]ICAL [employer], Duration: 30 day, Stop date: 08/30/18 8:59:00 [employer]ICAL [employer]PENTER Inactive 07/31/2018 [facility] Cefazolin 2 gm, Route: IVPB, ONCALL, Dosing Weight 98.409, kg, Start date: 07/31/18 9:00:00 [employer]ICAL [employer], Duration: 1 doses or times, ABX Indication: Surgical Prophylaxis Inactive 07/31/2018 [facility] Vancomycin 1,500 mg, Route: IVPB, ONCALL, Dosing Weight 98.409, kg, Start date: 07/31/18 9:00:00 [employer], Duration: 1 doses or times, ABX Indication: Surgical ProphylaxisNotes: TIME CRITICAL MEDICATION (Same As: Vanco donnie) Infusion rate 2001 mg: infuse over 2.5 hours For adult patients only: Round to nearest 250 mg per Medical Staff approval MEDICATION WASTE Product Size: 1000 mg Product Wasted: ___ mg Inactive 07/31/2018 [facility] gabapentin 300 mg, Route: PO, ONCALL, Dosing Weight 98.409, kg, Start date: 07/31/18 9:00:00 [employer]ICAL [employer], Duration: 30 day, Stop date: 08/30/18 8:59:00 [employer]ICAL [employer]PENTER Inactive 07/31/2018 [facility] Oxycontin 10 mg, Route: PO, Drug form: ERTAB, ONCALL, Dosing Weight 98.409, kg, Start date: 07/31/18 9:00:00 [employer]ICAL [employer]PENTER, Duration: 30 day, Stop date: 08/30/18 8:59:00 [employer]ICAL [employer]PENTER Inactive 07/31/2018 [facility] Tylenol 1,000 mg, Route: PO, ONCALL, Dosing Weight 98.409, kg, Start date: 07/31/18 9:00:00 [employer]ICAL [employer], Duration: 30 day, Stop date: 08/30/18 8:59:00 AC[employer]STICAL CARPENTER Inactive 07/31/2018 [facility] ropivacaine 100 mL, Route: InFILtration(local), Drug Form: INJ, Dosing Weight 98.409, kg, ONCALL, Start date: 07/31/18 9:00:00 [employer]ICAL [employer], Duration: 1 doses or times Inactive 07/31/2018 [facility] Calcium Chloride 0.0014 MEQ/ML / Potassium Chloride 0.004 MEQ/ML / Sodium Chloride 0.103 MEQ/ML / Sodium Lactate 0.028 MEQ/ML Injectable Solution 1,000 mL, Rate: 25 ml/hr, Infuse over: 40 hr, Route: IV, Dosing Weight 98.409 kg, Total Volume: 1,000, Start date: 07/31/18 8:44:00 [employer], Duration: 30 day, Stop date: 02/20/19 8:43:00 [employer]ICAL [employer], 2.17, m2 No Longer Active 07/31/2018 [facility] Breo Ellipta 100 mcg-25 mcg inhalation powder 1 puff, INHALATION, Daily, 0 Refill(s) Active 07/19/2018 [facility] levothyroxine 112 mcg (0.112 mg) oral tablet 112 microgram=1 tab, PO, Daily, # 30 tab, 0 Refill(s) Active 07/19/2018 [facility] Ventolin HFA 90 mcg/inh inhalation aerosol with adapter 2 puff, INHALATION, QID, 0 Refill(s) Active 07/19/2018 [facility] metoprolol tartrate 25 mg oral tablet 25 mg=1 tab, PO, BID, HOLD FOR HR Active 07/19/2018 [facility] Hydrochlorothiazide 12.5 MG / valsartan 160 MG Oral Tablet 1 tab, PO, Daily, # 30 tab, 0 Refill(s) Active 07/19/2018 [facility] Allergies, Adverse Reactions, Alerts Substance Category Reaction Severity Reaction type Status Date Reported Comments Source sulfa drugs Assertion Drug allergy Active [facility] shellfish Assertion Drug allergy Active [facility] iodine Assertion Drug allergy Active [facility] Immunizations Immunization Date Given Site Status Last Updated Comments Source Results Order Name Results Value Reference Range Date Interpretation Comments Source CHEM PANEL eGFR 78 mL/min/1.73m2 08/02/2018 Result Comment: The eGFR is calculated using the [...] from the National Kidney Disease Education Program (NKDEP) which additionally recommends that when the eGFR is used in patients with extremes of body mass index for purposes of drug dosing, the eGFR should be multiplied by the estimated BMI. [facility] CHEM PANEL Potassium Lvl 4.4 meq/L 3.5 - 5.1 08/02/2018 [facility] CHEM PANEL Glucose Lvl 123 mg/dL 70 - 99 08/02/2018 [facility] CHEM PANEL Creatinine Lvl 0.77 mg/dL 0.50 - 1.40 08/02/2018 [facility] CHEM PANEL BUN 19 mg/dL 7 - 22 08/02/2018 [facility] CHEM PANEL Sodium Lvl 141 meq/L 135 - 145 08/02/2018 [facility] CHEM PANEL Calcium Lvl 8.2 mg/dL 8.5 - 10.5 08/02/2018 [facility] CHEM PANEL CO2 27 meq/L 24 - 32 08/02/2018 [facility] CHEM PANEL Chloride Lvl 107 meq/L 95 - 109 08/02/2018 [facility] CHEM PANEL AGAP 11.4 meq/L 10.0 - 20.0 08/02/2018 [facility] HEMATOLOGY WBC 12.5 K/CMM 3.7 - 10.4 08/02/2018 [facility] HEMATOLOGY Hgb 10.9 g/dL 12.0 - 16.0 08/02/2018 [facility] HEMATOLOGY RBC 3.42 M/CMM 4.20 - 5.40 08/02/2018 [facility] HEMATOLOGY MCV 95.4 fL 80.0 - 98.0 08/02/2018 [facility] HEMATOLOGY Hct 32.7 % 36.0 - 48.0 08/02/2018 [facility] HEMATOLOGY MCHC 33.2 g/dL 32.0 - 36.0 08/02/2018 [facility] MCH 31.7 pg 27.0 - 31.0 08/02/2018 [facility] HEMATOLOGY Platelet 129 K/CMM 133 - 450 08/02/2018 [facility] HEMATOLOGY RDW 13.5 % 11.5 - 14.5 08/02/2018 [facility] HEMATOLOGY MPV 12.8 fL 7.4 - 10.4 08/02/2018 [facility] HEMATOLOGY Segs 84.4 % 45.0 - 75.0 08/02/2018 [facility] HEMATOLOGY Monocytes 6.5 % 2.0 - 12.0 08/02/2018 [facility] HEMATOLOGY Lymphocytes 8.7 % 20.0 - 40.0 08/02/2018 [facility] HEMATOLOGY Lymphocytes # 1.1 K/CMM 1.0 - 5.5 08/02/2018 [facility] HEMATOLOGY Neutrophils # 10.6 K/CMM 1.5 - 8.1 08/02/2018 [facility] HEMATOLOGY Monocytes # 0.8 K/CMM 0.0 - 0.8 08/02/2018 [facility] HEMATOLOGY Basophils 0.4 % 0.0 - 1.0 08/02/2018 [facility] ELECTROLYTES AGAP 14.0 meq/L 10.0 - 20.0 08/02/2018 [facility] ELECTROLYTES eGFR 72 mL/min/1.73m2 08/02/2018 Result Comment: The eGFR is calculated using the [...] from the National Kidney Disease Education Program (NKDEP) which additionally recommends that when the eGFR is used in patients with extremes of body mass index for purposes of drug dosing, the eGFR should be multiplied by the estimated BMI. [facility] ELECTROLYTES Calcium Lvl 8.8 mg/dL 8.5 - 10.5 08/02/2018 [facility] ELECTROLYTES CO2 23 meq/L 24 - 32 08/02/2018 [facility] ELECTROLYTES Potassium Lvl 4.0 meq/L 3.5 - 5.1 08/02/2018 [facility] ELECTROLYTES Chloride Lvl 109 meq/L 95 - 109 08/02/2018 [facility] ELECTROLYTES Sodium Lvl 142 meq/L 135 - 145 08/02/2018 [facility] ELECTROLYTES Glucose Lvl 145 mg/dL 70 - 99 08/02/2018 [facility] ELECTROLYTES BUN 18 mg/dL 7 - 22 08/02/2018 [facility] Creatinine Lvl 0.82 mg/dL 0.50 - 1.40 08/02/2018 [facility] Hct 38.6 % 36.0 - 48.0 08/02/2018 [facility] MCV 95.1 fL 80.0 - 98.0 08/02/2018 [facility] RBC 4.06 M/CMM 4.20 - 5.40 08/02/2018 [facility] Hgb 12.7 g/dL 12.0 - 16.0 08/02/2018 [facility] WBC 12.0 K/CMM 3.7 - 10.4 08/02/2018 [facility] RDW 13.8 % 11.5 - 14.5 08/02/2018 [facility] MCH 31.2 pg 27.0 - 31.0 08/02/2018 [facility] HEMATOLOGY MCHC 32.8 g/dL 32.0 - 36.0 08/02/2018 [facility] HEMATOLOGY MPV 12.3 fL 7.4 - 10.4 08/02/2018 [facility] HEMATOLOGY Platelet 156 K/CMM 133 - 450 08/02/2018 [facility] Knee 1-2 Views unilateral DX Knee 1-2 Views unilateral DX History: Status post arthroplasty. 2 views right knee. Comparison 02/28/2018. FINDINGS: The patient is status post total right knee arthroplasty. There is been patellar resurfacing. No evidence of periprosthetic fracture. There is subcutaneous gas and a joint effusion, as expected postoperatively. Numerous overlying dressings and devices limits definitive evaluation. No definitive evidence of unintended radiopaque foreign body. Alignment appears satisfactory. Radiograph of the knee are recommended after removal of the postsurgical devices. If there is persistent clinical concern, CT or MRI can be obtained for further evaluation. IMPRESSION: Status post total right knee arthroplasty. No evidence of acute hardware complication. SL: [id number] 08/01/2018 - - Read by: Chris Weinberg MD Dictated Date/time: 08/01/18 17:14 Electronically Signed by: Chris Weinberg MD 08/01/18 17:15 FINAL REPORT [facility] BLOOD BANK RESULTS Antibody Scrn Negative (07/31/18 9:25 AM) 07/31/2018 [facility] BLOOD BANK RESULTS ABO/Rh A POS 07/31/2018 [facility] BLOOD BANK RESULTS ABO/Rh A POS 07/19/2018 [facility] BLOOD [facility] RESULTS Antibody Scrn Negative (07/19/18 2:28 PM) 07/19/2018 [facility] ELECTROLYTES AGAP 12.6 meq/L 10.0 - 20.0 07/19/2018 [facility] ELECTROLYTES eGFR 68 mL/min/1.73m2 07/19/2018 Result Comment: The eGFR is calculated using the [...] from the National Kidney Disease Education Program (NKDEP) which additionally recommends that when the eGFR is used in patients with extremes of body mass index for purposes of drug dosing, the eGFR should be multiplied by the estimated BMI. [facility] ELECTROLYTES Creatinine Lvl 0.86 mg/dL 0.50 - 1.40 07/19/2018 [facility] ELECTROLYTES Glucose Lvl 101 mg/dL 70 - 99 07/19/2018 [facility] ELECTROLYTES BUN 20 mg/dL 7 - 22 07/19/2018 [facility] ELECTROLYTES Chloride Lvl 106 meq/L 95 - 109 07/19/2018 [facility] ELECTROLYTES Potassium Lvl 4.6 meq/L 3.5 - 5.1 07/19/2018 [facility] ELECTROLYTES CO2 24 meq/L 24 - 32 07/19/2018 [facility] ELECTROLYTES Sodium Lvl 138 meq/L 135 - 145 07/19/2018 [facility] ELECTROLYTES Calcium Lvl 8.8 mg/dL 8.5 - 10.5 07/19/2018 [facility] HEMATOLOGY Eosinophils # 0.2 K/CMM 0.0 - 0.5 07/19/2018 [facility] Basophils # 0.1 K/CMM 0.0 - 0.2 07/19/2018 [facility] Monocytes 7.1 % 2.0 - 12.0 07/19/2018 [facility] Eosinophils 3.1 % 0.0 - 4.0 07/19/2018 [facility] Basophils 0.9 % 0.0 - 1.0 07/19/2018 [facility] Neutrophils # 5.1 K/CMM 1.5 - 8.1 07/19/2018 [facility] Lymphocytes # 1.7 K/CMM 1.0 - 5.5 07/19/2018 [facility] Monocytes # 0.5 K/CMM 0.0 - 0.8 07/19/2018 [facility] Segs 67.0 % 45.0 - 75.0 07/19/2018 [facility] Lymphocytes 21.9 % 20.0 - 40.0 07/19/2018 [facility] MCHC 33.5 g/dL 32.0 - 36.0 07/19/2018 [facility] RDW 13.9 % 11.5 - 14.5 07/19/2018 [facility] MCV 95.4 fL 80.0 - 98.0 07/19/2018 [facility] HEMATOLOGY MCH 32.0 pg 27.0 - 31.0 07/19/2018 [facility] HEMATOLOGY RBC 3.97 M/CMM 4.20 - 5.40 07/19/2018 [facility] HEMATOLOGY Hct 37.9 % 36.0 - 48.0 07/19/2018 [facility] HEMATOLOGY Hgb 12.7 g/dL 12.0 - 16.0 07/19/2018 [facility] HEMATOLOGY Platelet 187 K/CMM 133 - 450 07/19/2018 [facility] HEMATOLOGY MPV 11.9 fL 7.4 - 10.4 07/19/2018 [facility] HEMATOLOGY WBC 7.7 K/CMM 3.7 - 10.4 07/19/2018 [facility] HEMATOLOGY INR 1.00 0.85 - 1.17 07/19/2018 [facility] HEMATOLOGY PT 13.0 s 12.0 - 14.7 07/19/2018 [facility] HEMATOLOGY PTT 30.7 s 22.9 - 35.8 07/19/2018 [facility] URINE AND STOOL UA Nitrite Negative (07/19/18 2:28 PM) Negative 07/19/2018 [facility] URINE AND STOOL UA RBC 1 /HPF 0 - 2 07/19/2018 [facility] URINE AND STOOL UA Sq Epi Few /LPF Few /LPF 07/19/2018 [facility] URINE AND STOOL UA Leuk Est Trace *ABN* (07/19/18 2:28 PM) Negative 07/19/2018 [facility] URINE AND STOOL UA WBC 2 /HPF 0 - 5 07/19/2018 [facility] URINE AND STOOL UA Bacteria Occasional /HPF None Seen /HPF 07/19/2018 [facility] URINE AND STOOL UA Blood Negative (07/19/18 2:28 PM) Negative 07/19/2018 [facility] URINE AND STOOL UA Urobilinogen <=1.0 mg/dL 0.1 - 1.0 07/19/2018 [facility] URINE AND STOOL UA Color Yellow *NA* (07/19/18 2:28 PM) Yellow 07/19/2018 [facility] URINE AND STOOL UA Turbidity Slight *ABN* (07/19/18 2:28 PM) Clear 07/19/2018 [facility] URINE AND STOOL UA Ketones Negative *NA* (07/19/18 2:28 PM) Negative 07/19/2018 [facility] URINE AND STOOL UA Bili Negative *NA* (07/19/18 2:28 PM) Negative 07/19/2018 [facility] URINE AND STOOL UA pH 5.0 5.0 - 8.0 07/19/2018 [facility] URINE AND STOOL UA Spec Grav 1.012 <=1.030 07/19/2018 [facility] URINE AND STOOL UA Glucose Negative *NA* (07/19/18 2:28 PM) Negative 07/19/2018 [facility] URINE AND STOOL UA Protein Negative (07/19/18 2:28 PM) Negative 07/19/2018 [facility] Chest 2 views DX Chest 2 views DX Clinical Indication: Coughing - pre admit/preop Comparison: None FINDINGS: The PA and lateral chest radiographs shows normal lung volumes without interstitial or airspace opacities, pleural effusions or pneumothorax. The heart size and pulmonary vasculature are normal. The trachea is midline. There are no clinically significant osseous abnormalities noted. IMPRESSION: No chest radiographic evidence of acute cardiopulmonary disease. SL: [id number] 07/19/2018 - - Read by: Anastacio Hebert MD Dictated Date/time: 07/19/18 17:13 Electronically Signed by: Anastacio Hebert MD 07/19/18 17:13 FINAL REPORT [facility] Abscess localization scan NM Abscess localization scan NM TECHNETIUM 99M CERETEC LEUKOCYTE SCAN: HISTORY: 11 years post right total knee arthroplasty with pain for 10 years. TECHNIQUE: The patient's white cells were labeled with 22 mCi of technetium 99m Ceretec followed by whole-body imaging at 4 hours. Spot images of the knees were also obtained at 4 hours and 18 hours. FINDINGS: There is no abnormal white cell accumulation in the right knee. There is mild asymmetrically increased activity in the marrow space of the proximal right femur well above the right knee. There is no corresponding abnormal activity in the proximal right femur on the bone scan of 03/07/2018. There are no other current radiographs for comparison. Previous radiographs of the right knee on 02/28/2018 show the knee arthroplasty in satisfactory position without radiographic evidence of osteomyelitis. IMPRESSION: 1. No evidence of osteomyelitis involving the right knee prosthesis. 2. Mildly increased medullary activity in the proximal right femur of uncertain significance, possibly normal variation. Radiographic correlation is suggested. ЕЛЕНА [id number] 05/23/2018 - - Read by: Dipesh Carson MD Dictated Date/time: 05/24/18 12:51 Electronically Signed by: Dipesh Carson MD 05/24/18 13:01 FINAL REPORT [facility] Bone scan 3 phase NM Bone scan 3 phase NM TRIPLE PHASE BONE SCAN OF THE KNEES: HISTORY: Right knee pain, post right total knee arthroplasty in 2008. TECHNIQUE: 27.2 mCi of technetium 99m MDP were given intravenously followed by perfusion, blood pool and delayed static imaging over the knees. FINDINGS: There is no abnormal perfusion or blood pool activity in either knee. There is mildly increased activity in the osseous structures around the right knee prosthesis. Right knee radiographs on 02/28/2018 show total knee arthroplasty in good position without definite lucency or destructive changes. There is increased activity in the medial and patellofemoral compartments of the left knee consistent with degenerative changes. IMPRESSION: Increased activity around the right knee prosthesis is more intense and remote from the time of the procedure than expected for reactive changes, suggesting loosening of the right knee prosthesis. There is no definite bone scan evidence of osteomyelitis. DLAWRENCE-PC 03/07/2018 - - Read by: Dipesh Carson MD Dictated Date/time: 03/07/18 17:30 Electronically Signed by: Dipesh Carson MD 03/07/18 17:36 FINAL REPORT [facility] Knee 4+ views unilateral DX Knee 4+ views unilateral DX Right Knee 4+ views unilateral DX Female 72 years old Clinical Indication: - M25.561 Pain in right knee; Comparison: 07/10/2013 FINDINGS: A set of 3 views for the right knee exam show evidence of a total knee prosthesis which is well aligned. The patellar component is in satisfactory position. There is no evidence of joint effusion. No radiopaque foreign bodies noted. There is no evidence of loosening of the elements. Comparison with previous examination of 07/10/2013 reveals no significant interval change. IMPRESSION: 1. No fractures or dislocation of the right knee. 2. Total knee prosthesis in satisfactory alignment. : [id number] 02/28/2018 - - Read by: Carl Desai MD Dictated Date/time: 02/28/18 15:10 Electronically Signed by: Carl Desai MD 02/28/18 15:11 FINAL REPORT [facility] Digital Mammo Screening [place] MA Digital Mammo Screening [place] MA - DIGITAL MAMMO SCREENING [place] MA BILATERAL DIGITAL SCREENING MAMMOGRAM WITH CAD: 06/08/2016 CLINICAL: Routine. Current study was evaluated with a Computer Aided Detection (CAD) system. Comparison is made to exams dated: 07/19/2014 mammogram - [facility], 06/01/2013 mammogram - [facility], 06/16/2012 mammogram, 05/21/2011 mammogram, 04/23/2011 mammogram and 07/19/2007 mammogram - [facility]. There are scattered fibroglandular densities in both breasts. Technologist indicates that the patient was very difficult to position and that these are the best films possible. No significant masses, calcifications, or other findings are seen in either breast. There has been no significant interval change. IMPRESSION: BENIGN There is no mammographic evidence of malignancy. A 1 year screening mammogram is recommended. Professional services are provided by the [facility]. Clint Harvey M.D. /penrad:06/08/2016 11:03:09 Substitute School Nurse: Waleska MARTINEZ(Darling)(Antonio), [facility] This exam was dictated and interpreted by [id number] for ЕЛЕНА Santos 15. letter sent: Normal exam Mammogram BI-RADS: 2 Benign 06/08/2016 - - Read by: Jose Harvey III, MD Dictated Date/time: 06/08/16 11:03 Electronically Signed by: Jose Harvey III, MD 06/08/16 11:03 FINAL REPORT JULIANNE Hodge Digital Mammo Screening [place] MA Digital Mammo Screening [place] MA - DIGITAL MAMMO SCREENING [place] MA BILATERAL DIGITAL SCREENING MAMMOGRAM WITH CAD: 07/19/2014 CLINICAL: Routine. Current study was evaluated with a Computer Aided Detection (CAD) system. Comparison is made to exams dated: 04/23/2011 mammogram, 06/16/2012 mammogram - [facility] and 06/01/2013 mammogram - [facility]. There are scattered fibroglandular densities in both breasts. There are benign lymph nodes in both breasts. No significant masses, calcifications, or other findings are seen in either breast. There has been no significant interval change. IMPRESSION: BENIGN There is no mammographic evidence of malignancy. A screening mammogram in one year is recommended. Dr. Gladys Tucker D.O. /penrad:07/19/2014 12:56:43 Substitute School Nurse: Lotus MARTINEZ(Darling)(M), [facility] This exam was dictated and interpreted by [id number] for JULIANNE Hodge. letter sent: Normal exam Mammogram BI-RADS: 2 Benign 07/19/2014 - - Read by: Gladys Tucker DO Dictated Date/time: 07/19/14 12:56 Electronically Signed by: Gladys Tucker DO 07/19/14 12:56 FINAL REPORT JULIAN[facility] Pelvis US Pelvis US HISTORY: Pain TECHNIQUE: Grayscale and color Doppler images obtained of the pelvis COMPARISON: None PLEASE NOTE: Images 25 through 28 are mislabeled, and are of the LEFT kidney. FINDINGS: The uterus is surgically absent. No evidence of abnormal echogenicity within the uterine fossa. The bilateral ovaries are not visualized, correlate for previous oophorectomy. No adnexal masses. The urinary bladder is normal in appearance. Prevoid volume is 221 mL. Post void volume is 20 mL. Images obtained following voiding demonstrate persistent mild left-sided hydronephrosis. IMPRESSION: 1. Status post hysterectomy. 2. Nonvisualization of the bilateral ovaries. 3. Mild left-sided hydronephrosis which persists following voiding. 09/21/2013 - - Read by: Alie Macias Dictated Date/time: 09/21/13 09:39 Electronically Signed by: Alie Macias MD 09/21/13 09:41 FINAL REPORT [facility] Abdomen complete US Abdomen complete US ABDOMEN ULTRASOUND CLINICAL HISTORY: Abdominal pain. COMPARISON IMAGING: Prior exam of 01/14/2012 FINDINGS: Liver: Measures 16 cm in length (normal: 13-17 cm). Echogenicity is unremarkable. No suspicious lesion or surface nodularity. Portal vein is patent with hepatopedal flow. Biliary: The gallbladder is surgically absent. There is mild central biliary prominence, which is likely compensatory related to previous cholecystectomy. Mid common bile duct measures 6.6 mm in diameter. Pancreas: No focal lesions visualized. Spleen: Measures 8.2 cm in maximal dimension (normal < 13 cm). No focal lesion is seen. Kidneys: Right and left measure 11.8 and 11.7 cm in length, respectively (normal: 9-12 cm). There is mild left-sided hydronephrosis. The right collecting system is within normal limits. No suspicious mass or echogenic calculus bilaterally. Vascular: Visualized portions of the IVC are patent. No obvious aneurysmal dilatation of the aorta. IMPRESSION: Mild left-sided hydronephrosis. Otherwise unremarkable abdominal ultrasound. 09/21/2013 - - Read by: Alie Macias Dictated Date/time: 09/21/13 08:31 Electronically Signed by: Alie Macias MD 09/21/13 08:34 FINAL REPORT [facility] Knee AP and lateral Knee AP and lateral RIGHT KNEE SERIES CLINICAL HISTORY: Knee pain. COMPARISON IMAGING: None. FINDINGS: 2 views of the right knee are submitted for interpretation. The patient is status post totally arthroplasty. No obvious complication is identified. There is no fracture or dislocation. Soft tissues are unremarkable. No obvious joint effusion or suspicious radiopaque foreign body. IMPRESSION: No acute abnormality. 07/10/2013 - - Read by: Stephon Ascencio Dictated Date/time: 07/10/13 07:52 Electronically Signed by: tSephon Ascencio MD 07/10/13 07:52 FINAL REPORT [facility] Hodge Digital Mammo Screen [place] MA w sonu Digital Mammo Screen [place] MA w sonu - DIGITAL MAMMO SCREEN [place] MA W SONU BILATERAL DIGITAL SCREENING MAMMOGRAM 3D/2D WITH CAD: 06/01/2013 CLINICAL: Screen. 2D digital mammographic images and 3D digital tomosynthesis images were obtained in the CC and MLO projections. Current study was evaluated with a Computer Aided Detection (CAD) system. Comparison is made to exams dated: 06/16/2012 mammogram, 05/21/2011 mammogram, 04/23/2011 mammogram and 07/19/2007 mammogram - [facility]. Current study contains 6 films. There are scattered fibroglandular elements in both breasts that could obscure a lesion on mammography. There are benign lymph nodes in both breasts. No significant masses, calcifications, or other findings are seen in either breast. There has been no significant interval change. IMPRESSION: BENIGN There is no mammographic evidence of malignancy. A screening mammogram in one year is recommended. Jorge mooney/penrad:06/04/2013 12:26:53 Substitute School Nurse: Brandie Owusu, [facility] This exam was dictated and interpreted by [id number] at [facility], SL 13. letter sent: Bilateral Benign Mammogram BI-RADS: 2 Benign 06/01/2013 - - Read by: Jorge Trejo Dictated Date/time: 06/04/13 12:26 Electronically Signed by: Jorge Trejo MD 06/04/13 12:26 FINAL REPORT [facility] Vital Signs Vital Sign Value Date Comments Source Heart Rate 60 08/02/2018 [facility] Temperature Oral (F) 98.2 F 08/02/2018 [facility] Systolic (mm Hg) 146 08/02/2018 [facility] Diastolic (mm Hg) 60 08/02/2018 [facility] Respitory Rate 16 08/02/2018 [facility] Respitory Rate 18 08/02/2018 [facility] Temperature Oral (F) 98.1 F 08/02/2018 [facility] Systolic (mm Hg) 124 08/02/2018 [facility] Diastolic (mm Hg) 67 08/02/2018 [facility] Respitory Rate 16 08/02/2018 [facility] Heart Rate 65 08/02/2018 [facility] Temperature Oral (F) 98 F 08/02/2018 [facility] Systolic (mm Hg) 148 08/02/2018 [facility] Diastolic (mm Hg) 74 08/02/2018 [facility] Heart Rate 61 08/02/2018 [facility] Weight 98.636 08/02/2018 [facility] BMI Calculated 35.1 08/02/2018 [facility] Height 167.64 cm 08/02/2018 [facility] Height 167.64 cm 07/19/2018 [facility] BMI Calculated 35.02 07/19/2018 [facility] Weight 98.409 07/19/2018 [facility] Encounters Location Location Details Encounter Type Encounter Number Reason For Visit Attending Provider ADM Date DC Date Status Source [facility] Outpatient [id number] [id number] ARYAN CORCORAN 06/23/2011 Active [facility] Outpatient [id number] ROUTINE ARYAN CORCORAN 06/01/2013 Active [facility] [place] [facility] [id number] _[id number] Aryan Corcoran 09/21/2013 09/22/2013 [facility] [place] [facility] [place] [facility] [id number] Aryan Corcoran 07/19/2014 07/20/2014 [facility] [place] [facility] [place] [facility] [id number] Aryan Corcoran 06/08/2016 06/09/2016 [facility] [place] [facility] Out[facility] [place] [facility] [id number] Mike Cárdenas 02/28/2018 03/01/2018 [facility] Outpatient [id number] Mike Cárdenas 03/07/2018 03/08/2018 [facility] Inpatient [id number] Phan Zamora 08/01/2018 08/02/2018 [facility] [place] OP Therapy Patients [id number] Phan Zamora 08/03/2018 09/02/2018 [facility] [place] [id number] 793.80 - ABL MAMMOGRAM N ARYAN CORCORAN Cancel [facility] Procedures Procedure Code Date Perfomer Comments Source Appendectomy [id number] [facility] [place] Hip replacement<sup>1</sup> [id number] parital [facility] Hysterectomy [id number] [facility] Knee replacement<sup>2</sup> [id number] partial [facility] Lumbar spinal fusion [id number] [facility] [place] Appendectomy [id number] [facility] [place] Hip replacement<sup>1</sup> [id number] parital [facility] [place] Hysterectomy [id number] [facility] [place] Knee replacement<sup>2</sup> [id number] partial [facility] [place] Lumbar spinal fusion [id number] [facility] [place] Appendectomy [id number] [facility] Hip replacement<sup>1</sup> [id number] parital [facility] Hysterectomy [id number] [facility] Knee replacement<sup>2</sup> 43735409 partial [facility] Lumbar spinal fusion [id number] [facility]
[2018-10-11] MEDS ORDERED: DILTIAZEM HCL 5 MG/ML 5 ML VIAL IV ONE (17:45)
[2018-10-11] MEDS ORDERED: OXYCODONE-ACET1 EAC3 PO (18:04)
[2018-10-11 18:13] LABS: BASOPHILS % 0.3 % (0.0-1.0); EOSINOPHILS # (AUTO) 0.1 (0.0-0.4); EOSINOPHILS % 1.5 % (0.0-6.0); HEMATOCRIT 39.7 % (34.2-44.1); HEMOGLOBIN 13.2 g/dL (12.0-16.0); MEAN CORPUSCULAR HEMOGLOBIN 31.1 pg (28-32); MEAN CORPUSCULAR HGB CONC 33.2 g/dL (31-35); MEAN CORPUSCULAR VOLUME 93.4 fL (81-99); MONOCYTES # (AUTO) 0.7 (0.2-0.8); MONOCYTES % 7.3 % (4.4-11.3); NEUTROPHILS # (AUTO) 6.1 (2.1-6.9); NEUTROPHILS % 68.7 % (38.7-80.0); PLATELET COUNT 172 x10e3/uL (140-360); RED BLOOD COUNT 4.25 x10e6/uL (3.6-5.1); RED CELL DISTRIBUTION WIDTH 13.4 % (11.7-14.4)
[2018-10-11] MEDS ORDERED: DILTIAZEM HCL 125 ML IV STA (18:29)
[2018-10-11] MEDS ORDERED: DILTIAZEM HCL 5 MG/ML 5 ML VIAL IV STA (18:29)
[2018-10-11 18:32] LABS: INR 0.84; PARTIAL THROMBOPLASTIN TIME 30.2 seconds (23.8-35.5)
[2018-10-11] MEDS ORDERED: SODIUM CHLORIDE 0.9% 100 ML ONE (18:49)
[2018-10-11] MEDS ORDERED: DILTIAZEM HCL IV 5MG/ML 25 ML VIAL ONE (18:50)
--- NOTE | 2018-10-11 19:02 | Diagnostic Imaging Report ---
EXAMINATION: CHEST SINGLE (PORTABLE) INDICATION: Shortness of breath. ^SOB ^[id number] ^1815 ^Y COMPARISON: July 18, 2018 FINDINGS: TUBES and LINES: None. LUNGS: Lungs are well inflated. Lungs are clear. There is no evidence of pneumonia or pulmonary edema. PLEURA: No pleural effusion or pneumothorax. HEART AND MEDIASTINUM: Cardiomegaly with pulmonary vascular congestion BONES AND SOFT TISSUES: No acute osseous lesion. Soft tissues are unremarkable. UPPER ABDOMEN: No free air under the diaphragm. IMPRESSION: Cardiomegaly with pulmonary vascular congestion Signed by: Dr. Juan Pablo Vazquez M.D. on 10/11/2018 6:58 PM
--- NOTE | 2018-10-11 19:58 | NUR ---
PATIENT IS ALERT AND ORIENTATED X3 ON ROOM AIR, MAKING NEEDS KNOWN, FAMILY AT BEDSIDE, DENIES PAIN, RESP E/U, PATIENT IS CONTINENT ASKING TO GO TO THE RESTROOM, NO FALL RISK FACTORS IDENTIFIED, CARDIZEM IS NOW AT 10MG/HR
[2018-10-11 20:11] LABS: ALANINE AMINOTRANSFERASE 17 IU/L (0-55); ALBUMIN 3.6 g/dL (3.5-5.0); ALBUMIN/GLOBULIN RATIO 0.9 (0.8-2.0); ALKALINE PHOSPHATASE 62 IU/L (40-150); ANION GAP 13.7 mmol/L (8-16); BLOOD UREA NITROGEN 12 mg/dL (7-26); BUN/CREATININE RATIO 16 (6-25); CALCIUM 9.7 mg/dL (8.4-10.2); CARBON DIOXIDE 24 mmol/L (22-29); CHLORIDE 108 mmol/L (98-107); CREATINE KINASE 30 IU/L (29-168); CREATININE, SERUM 0.76 mg/dL (0.57-1.11); EST GLOMERULAR FILTRATION RATE > 60 ML/MIN (60-); GLUCOSE 109 mg/dL (74-118); POTASSIUM 3.7 mmol/L (3.5-5.1); SODIUM 142 mmol/L (136-145)
[2018-10-11 20:31] LABS: THYROID STIMULATING HORMONE 0.269 uIU/mL (0.350-4.940)
[2018-10-11 20:34] LABS: PLATELET ESTIMATE ADEQUATE; PLATELET MORPHOLOGY COMMENT FEW LARGE; RBC MORPHOLOGY COMMENT NORMAL
[2018-10-11] MEDS ORDERED: METHYLPREDNISOLONE SOD SUCC 125 MG/2ML VIAL IV ONE (20:45)
[2018-10-11] MEDS ORDERED: DIPHENHYDRAMINE HCL INJ 50 MG/ML VIAL IV ONE (20:45)
[2018-10-11] MEDS ORDERED: DIGOXIN INJ 0.25 MG/ML 2 ML AMP IV ONE (20:45)
[2018-10-11] MEDS: ENOXAPARIN SODIUM INJ 100 MG/ML SYR SC SCH (21:10)
--- NOTE | 2018-10-11 21:22 | NUR ---
SPOKE TO MARY IN RADIOLOGY, STEROIDS AND BENADRYL WERE GIVEN, MARY WILL COME PICK PATIENT UP FOR SCAN IN 20 MINUTES
[2018-10-11] MEDS ORDERED: NITROGLYCERIN 0.4 MG SUBL SL PRN (21:45)
[2018-10-11] MEDS ORDERED: ENOXAPARIN SODIUM INJ 100 MG/ML SYR SC SCH (21:45)
[2018-10-11] MEDS: DILTIAZEM HCL 125 ML IV SCH (21:45)
--- NOTE | 2018-10-11 22:00 | NUR ---
Received to 192 from ER. Placed on EKG, pulse ox & NBP for monitoring. Admission history, vaccine history, family history and initial admission assessment done. See interventions. Cardizem infusing @ 15ml/hr or 15 mg/hr.
--- NOTE | 2018-10-11 22:24 | Diagnostic Imaging Report ---
EXAMINATION: CT scan of the chest with contrast. TECHNIQUE: Helical CT images of the chest were performed from the lung apices to the level of the adrenal glands after the intravenous administration of 100 cc of Omnipaque 300. Coronal and sagittal reformatted images were obtained. COMPARISON: None. CLINICAL HISTORY:chest pain DISCUSSION: LINES/TUBES: None. LUNGS AND AIRWAYS: Lower lung atelectasis. No concerning nodules or masses. No central filling defect. Hypodensity in the right lower lobe pulmonary artery for example axial image 63 and sagittal image 42. PLEURA: No pneumothorax or pleural effusions. HEART AND MEDIASTINUM: The thyroid gland is normal. The heart and pericardium are within normal limits. Main pulmonary artery is mildly enlarged measuring 3.5 cm. LYMPH NODES: There is no mediastinal, hilar or axillary lymphadenopathy. ABDOMEN: Limited contrast-enhanced views of the upper abdomen show no abnormality within the visualized liver, spleen, pancreas, or kidneys. The adrenal glands are normal. BONES AND SOFT TISSUES: No acute bony abnormalities. IMPRESSION: Subsegmental right lower lobe pulmonary embolism versus mixing artifact. Would favor artifact particularly if a lower extremity Doppler venous ultrasound is negative. Signed by: Dr. Travis Flores M.D. on 10/11/2018 10:20 PM
[2018-10-11 22:30] VITALS: BP 131/82
--- NOTE | 2018-10-11 22:30 | NUR ---
family spoke to dr goldman regarding patients pain in the right upper leg, family concerned with a possible dvt in the right lower extremity, patient covered with lovenox and dr goldman gave orders to have venous doppler of the right lower extremity in the morning,family at bedside to witness conversation.
[2018-10-11] MEDS ORDERED: SODIUM CHLORIDE 0.9% 50ML 50 ML ONE (22:34)
[2018-10-11] MEDS ORDERED: IOPAMIDOL 370 MG/ML 200 ML INFUS..BTL INJ ONE (22:35)
[2018-10-11 23:00] VITALS: BP 102/78
--- NOTE | 2018-10-11 23:00 | NUR ---
Unable to void per bed sidhu. Placed purewick external catheter placed.
[2018-10-11 23:12] VITALS: BP 102/78
[2018-10-12] VITALS (24 sets, daily range): BP systolic 97–163; BP diastolic 38–145
--- NOTE | 2018-10-12 00:30 | NUR ---
Purewick failed. Bed linens changed. New purewick applied.
[2018-10-12] MEDS: NITROGLYCERIN 2% OINT 1 GM PKT TOP SCH ×3 (01:01→12:00)
[2018-10-12] MEDS: FAMOTIDINE 20 MG TAB PO SCH ×3 (01:01→21:28)
[2018-10-12 02:42] LABS: CREATINE KINASE MB 1.5 ng/mL (0-5.0)
[2018-10-12] MEDS ORDERED: DILTIAZEM HCL IV 5MG/ML 25 ML VIAL ONE (05:00)
[2018-10-12] MEDS ORDERED: SODIUM CHLORIDE 0.9% 100 ML ONE (05:00)
[2018-10-12] MEDS: DILTIAZEM HCL 125 ML IV SCH (05:05)
--- NOTE | 2018-10-12 07:00 | NUR ---
ASSESSMENT: Spiritual concern Referred by RN. Pt requested mobile device developer visit for prayer. Pt's at bedside. Pt identified as Church. Pt states her name is Tuyet Hall and goes by Isabel. Intervention: Provided empathic listening. Provided prayer from [employer] tradition. Provided information on how to reach mobile device developer, if needed. Outcome: Pt & expressed appreciation for visit and prayer. No need to follow at this time. SÁNCHEZ BUNN Aircraft [employer] Spiritual Care Department O: [phone] Pager: [phone] ([phone] number calling from)
[2018-10-12 07:29] LABS: BASOPHILS % 0.1 % (0.0-1.0); HEMATOCRIT 36.4 % (34.2-44.1); HEMOGLOBIN 11.9 g/dL (12.0-16.0); LYMPHOCYTES # (AUTO) 0.8 (1.0-3.2); LYMPHOCYTES % 12.4 % (18.0-39.1); MEAN CORPUSCULAR HEMOGLOBIN 30.7 pg (28-32); MEAN CORPUSCULAR HGB CONC 32.7 g/dL (31-35); MEAN CORPUSCULAR VOLUME 93.8 fL (81-99); MONOCYTES # (AUTO) 0.1 (0.2-0.8); MONOCYTES % 0.7 % (4.4-11.3); NEUTROPHILS # (AUTO) 5.8 (2.1-6.9); NEUTROPHILS % 86.5 % (38.7-80.0); PLATELET COUNT 145 x10e3/uL (140-360); RED BLOOD COUNT 3.88 x10e6/uL (3.6-5.1); RED CELL DISTRIBUTION WIDTH 13.4 % (11.7-14.4)
[2018-10-12 08:23] LABS: CREATINE KINASE MB 1.3 ng/mL (0-5.0)
[2018-10-12 08:48] LABS: BLOOD UREA NITROGEN 17 mg/dL (7-26); BUN/CREATININE RATIO 23 (6-25); CALCIUM 9.7 mg/dL (8.4-10.2); CARBON DIOXIDE 25 mmol/L (22-29); CHLORIDE 109 mmol/L (98-107); CHOL/HDL RATIO 2.5 (3.0-3.6); CHOLESTEROL 160 MD/DL (0-199); CREATININE, SERUM 0.73 mg/dL (0.57-1.11); EST GLOMERULAR FILTRATION RATE > 60 ML/MIN (60-); GLUCOSE 180 mg/dL (74-118); HDL CHOLESTEROL 64 MG/DL (40-60); LDL CHOLESTEROL 81 MG/DL (60-130); SODIUM 141 mmol/L (136-145); TRIGLYCERIDES 73 MG/DL (0-149)
[2018-10-12] MEDS: ENOXAPARIN SODIUM INJ 100 MG/ML SYR SC SCH (09:11)
[2018-10-12] MEDS ORDERED: LISINOPRIL20 MG PO (10:03)
[2018-10-12] MEDS ORDERED: BUDESONIDE/FORMOTEROL 160/4.5MCG INHALER INH PRN (10:15)
[2018-10-12] MEDS ORDERED: METOPROLOL TARTRATE 25 MG TAB PO SCH ×2 (11:30→17:00)
[2018-10-12] MEDS ORDERED: METOPROLOL TARTRATE 25 MG TAB PO NR (12:00)
--- NOTE | 2018-10-12 16:25 | History and Physical ---
REASON FOR ADMISSION: This is a 73-year-old female patient of mine, presented to the emergency room with complaint of current onset of chest pain and severe palpitation. HISTORY OF PRESENT ILLNESS: Ms. Tuyet Mares is a 73-year-old female patient with a previous history of paroxysmal atrial fibrillation, who was on metoprolol and she was back into the sinus, and doing well, and recently she has had right knee surgery and surgery in July. Postop, she was doing well. Yesterday, when she was mowing in her house, suddenly she developed chest tightness and chest pain associated with shortness of breath, palpitations. The patient came to the ER and was found to be in atrial fibrillation with rapid ventricular rate with a heart rate into 150s and 160s, and also hypertensive. The patient's D-dimer was also positive. The patient was admitted to ICU with Cardizem drip. ALLERGIES: THE PATIENT IS ALLERGIC TO SHELLFISH. PAST MEDICAL HISTORY: Paroxysmal atrial fibrillation, hypertension, and osteoarthritis. PAST SURGICAL HISTORY: Recent knee replacement. History of back surgery, hip surgery, and thyroidectomy. SOCIAL HISTORY: Denies smoking. Denies using alcohol. FAMILY HISTORY: Hypertension. REVIEW OF SYSTEMS: Chest pain, shortness of breath, palpitation. PHYSICAL EXAMINATION: GENERAL: She is a middle-aged female patient, lying in the bed, not in any acute distress. The patient is in the ICU on a Cardizem drip and heart rate is now controlled. VITAL SIGNS: Temperature 97.8, pulse rate 70, blood pressure 127/54, respiration rate 19. HEENT: Normocephalic, atraumatic. No JVD. No lymphadenopathy. LUNGS: Bilateral equal air entry. No rales, no rhonchi. HEART: S1, S2. Irregularly irregular. Systolic murmur present. ABDOMEN: Soft. Bowel sounds present. NEUROLOGIC: No focal neurological deficit. mild tenderness present status post surgery. Postop scar look clean. ADMITTING INPATIENT DIAGNOSES: A 73-year-old female patient, presented with atrial fibrillation with rapid ventricular rate and chest pain, shortness of breath. The patient's CT scan of the chest did show a possible right lower lobe pulmonary emboli with artifact. But the patient D-dimer is positive and the clinical suspicion is high. There is high probability of pulmonary embolism. We will obtain venous Doppler study to check for the DVT. We will also obtain Pulmonary consultation and Cardiology consultation. The patient will be needing anticoagulation. The patient is on Lovenox and Cardizem drip. Long-term anticoagulation, we will start as per advice from Cardiopulmonary. MD ALEJANDRA Ibarra/EFRA /[id number]
[2018-10-12] MEDS ORDERED: APIXABAN 5 MG TABLET PO SCH (17:00)
[2018-10-12] MEDS: APIXABAN 5 MG TABLET PO SCH (18:25)
--- NOTE | 2018-10-12 18:40 | Consultation ---
DATE OF CONSULTATION: CHIEF COMPLAINT: Chest pain. HISTORY OF PRESENT ILLNESS: This is a 73-year-old female well known to practice with history of paroxysmal AFib, mild CAD, left heart catheterization in April 2017, COPD, hypothyroidism. The patient presents to [facility] with complaints of chest pain and palpitations that started yesterday afternoon. Came to the ER for further evaluation, was noted in AFib RVR, was given diltiazem several rounds and digoxin for rate control and then placed on diltiazem drip. The patient has converted to sinus rhythm since then. She is on diltiazem drip currently at 5 mg per hour. States that she is doing fine and feels back to her baseline. The patient was seen in ICU room 193 with multiple family members at bedside, reports that she is doing fine and is actually asking to go home. Denies any more chest pain, any shortness of breath, any palpitations, or dizziness. The patient was last seen in early June in office and had a stress test for cardiac clearance for an upcoming surgery of right knee. The patient did have right knee surgery on August 01, 2018. Apparently, no complications were reported. The patient does report intermittently right thigh pain and slight swelling. CURRENT MEDICATIONS: Aspirin 81 mg once a day, losartan hydrochlorothiazide 150/12.5 daily, metoprolol 25 mg once a day, levothyroxine 125 mcg once a day, Breo inhaler once a day, tramadol 50 mg as needed p.r.n. PAST MEDICAL HISTORY: Paroxysmal AFib, left heart catheterization on May 05, 2017, showing mild CAD, hypertension, COPD, hypothyroidism. SURGICAL HISTORY: Hysterectomy, back surgery, cholecystectomy, redo right total knee replacement on August 01, 2018, right hip replacement, and appendectomy. FAMILY HISTORY: Mother at the age of 70, apparently with history of breast cancer. Father at the age of 76, apparently had aneurysm. SOCIAL HISTORY: She is . Nonsmoker. She is retired from [employer]. No alcohol use. ALLERGIES: SHELLFISH. REVIEW OF SYSTEMS: GENERAL: Appears stated age. Denies any weight changes, fevers, chills, or night sweats. SKIN: Denies any rashes or bruises. HEENT: No nausea, vomiting, vision changes, double vision, blurred vision epistaxis, hoarseness, sore throat, swollen neck. CARDIAC: Positive for palpitations yesterday. Positive for chest pain yesterday. Positive for dyspnea on exertion. Denies any orthopnea or any PND. Positive for lower extremity edema. RESPIRATORY: Positive for dyspnea on exertion. Denies any wheezing, coughing, or any hemoptysis. GI: Good appetite. Denied any nausea, vomiting, diarrhea, or constipation, any melena or hematochezia. URINARY: Denies any frequency, urgency, hematuria, or dysuria. VASCULAR: Positive for intermittent lower extremity edema. MUSCULOSKELETAL: Positive for right hip and right knee pain, status post right hip replacement and also right knee replacement on August 01, 2018. NEUROLOGIC: Denies any tingling, tremors, paralysis, fainting, black outs, seizures. HEMATOLOGIC: Denies any bruising or bleeding. ENDOCRINE: Denies any heat or cold intolerance, any polyuria, polydipsia, or polyphagia. PHYSICAL EXAMINATION: VITAL SIGNS: Height 66 inches, weight 212 pounds, BMI 34. Temperature 97.8, pulse 67, respiratory rate 16, blood pressure 127/54, and sats 98% on room air. GENERAL: Appears stated age, reliable informant. SKIN: No rashes or bruises noted. Does have a right knee scar, recently had operation, July 2018 HEENT: Normocephalic. Pupils are equal and reactive. Extraocular movements intact. NECK: Trachea midline. No thyromegaly. No carotid bruits. HEART: Regular rate and rhythm. PMI about fourth and fifth intercostal space. LUNGS: Bilateral breath sounds. Clear to auscultation. ABDOMEN: Soft, nontender, and nondistended. No organomegaly noted. MUSCULOSKELETAL: Good muscle strength. Mild lower extremity edema. VASCULAR: +2 bilateral radial pulses, +1 DP/PT pulses. NEUROLOGIC: Cranial nerves II through XII intact. IMAGING: Chest x-ray showing some pulmonary congestion. CT chest with contrast showing segmental right lower lobe, possible pulmonary embolism artifact. LABORATORY DATA: White count 6.6, hemoglobin 11, hematocrit 36.4, and platelets 145. Chemistry; sodium 141, potassium 4.0, chloride 109, BUN 17, creatinine 0.7. Troponin 0.016, 0.031, and 0.033. TSH is 0.269. ASSESSMENT AND PLAN: 1. Paroxysmal atrial fibrillation with rapid ventricular rate. 2. Coronary artery disease, mild left heart catheterization in August 2018. 3. Hypertension. 4. Chronic obstructive pulmonary disease. 5. Hypothyroidism. PLAN: The patient presented with AFib RVR has converted back to sinus rhythm. CT of the chest with possible PE. We will obtain lower extremity venous study to evaluate for any clot burden. We will attempt to wean off Cardizem drip. Restart the patient on beta-juliana therapy. Oral anticoagulation was discussed at length with risks and benefits. We will restart Eliquis at 5 mg b.i.d. We will continue to monitoring the patient and adjust cardiac therapy as clinical course dictates. Thank you very much for this consult. Dictated by Dipesh Ventura NP Seen and examined Sarah Little MD DC/EFRA /[id number]
--- NOTE | 2018-10-12 19:00 | NUR ---
Report received. Assumed care. Assessment done. See interventions.
[2018-10-12] MEDS ORDERED: METOPROLOL TARTRATE 50 MG TAB PO SCH (21:00)
[2018-10-13] VITALS (12 sets, daily range): BP systolic 102–151; BP diastolic 40–93
--- NOTE | 2018-10-13 01:12 | Consultation ---
DATE OF CONSULTATION: Pulmonary Consultation REASON FOR CONSULTATION: Possible pulmonary embolism. HISTORY OF PRESENT ILLNESS: Ms. Mares is a 73-year-old ex-smoker, pleasant lady, came into the hospital because of atrial fibrillation with rapid ventricular rate. The patient's blood pressure was also elevated. After coming to the hospital, the patient underwent CAT scan of the chest, which was reported as possible subsegmental filling defect on the right lower lobe pulmonary artery. I looked at CAT scan of the chest myself, I am not convinced that the patient has true defect to account for PE. It appears more like artifact. Venous Doppler study has been unremarkable. The patient at the time of my assessment is on room air, oxygenating normal. PAST MEDICAL HISTORY: Significant for obesity, high possibility of obstructive sleep apnea, paroxysmal atrial fibrillation, hypertension, and osteoarthritis. PAST SURGICAL HISTORY: Recent knee replacement, back surgery, hip surgery, and thyroidectomy. SOCIAL HISTORY: The patient smoked in the past. Denies any alcohol or recreational drug use. REVIEW OF SYSTEMS: No fever, no chills, no rigors. At the time of admission, the patient was having the palpitation. No specific chest discomfort. Denies recent weight gain or weight loss. Denies nausea, vomiting, abdominal pain, diarrhea, constipation. Denies urinary urgency or frequency. PHYSICAL EXAMINATION: VITAL SIGNS: Temperature 97.8, pulse of 67, respiratory rate is 18-20, and oxygen saturation 98% on room air. HEAD AND NECK: Normocephalic, nontraumatic. Pupils are reactive. Oral mucosa moist. Neck supple. CHEST: Clear. HEART: S1, S2 audible. Irregular rate and rhythm. ABDOMEN: Obese, nontender. EXTREMITIES: No significant edema. No calf tenderness. ANNUAL GIVING DIRECTOR: Alert and awake, nonfocal. LABORATORY AND DIAGNOSTIC DATA: WBC is 6.69, hemoglobin 11.9, hematocrit 36.4, and platelet count of 145,000. INR 0.84. D-dimer was 1.01. BUN of 17, creatinine is 0.7. TSH 0.269. Venous Doppler study, no DVT. CAT scan of the chest, questionable subsegmental pulmonary embolism. Paroxysmal atrial fibrillation, obesity, possible sleep apnea, underlying COPD, question hyperthyroidism. Recommended from Pulmonary standpoint, the patient is hemodynamically stable, oxygenating well. Even the patient truly has pulmonary embolism burden, this was small, may not have contributed any atrial fibrillation with high blood pressure. The patient having recurrent . From Pulmonary standpoint, she will be continued on anticoagulation. Clinical suspicion for pulmonary embolism is on the low side. From Pulmonary standpoint, she can be discharged home, discussed with primary care physician. Madhu Corcoran MD MP/EFRA /[id number]
[2018-10-13 05:19] LABS: BASOPHILS % 0.1 % (0.0-1.0); HEMATOCRIT 33.3 % (34.2-44.1); HEMOGLOBIN 11.1 g/dL (12.0-16.0); LYMPHOCYTES # (AUTO) 1.8 (1.0-3.2); LYMPHOCYTES % 12.4 % (18.0-39.1); MEAN CORPUSCULAR HEMOGLOBIN 31.2 pg (28-32); MEAN CORPUSCULAR HGB CONC 33.3 g/dL (31-35); MEAN CORPUSCULAR VOLUME 93.5 fL (81-99); MONOCYTES # (AUTO) 0.8 (0.2-0.8); MONOCYTES % 5.7 % (4.4-11.3); NEUTROPHILS % 81.5 % (38.7-80.0); PLATELET COUNT 150 x10e3/uL (140-360); RED BLOOD COUNT 3.56 x10e6/uL (3.6-5.1); RED CELL DISTRIBUTION WIDTH 13.6 % (11.7-14.4)
[2018-10-13 05:51] LABS: ALANINE AMINOTRANSFERASE 14 IU/L (0-55); ALBUMIN 3.1 g/dL (3.5-5.0); ALBUMIN/GLOBULIN RATIO 0.9 (0.8-2.0); ALKALINE PHOSPHATASE 43 IU/L (40-150); ANION GAP 10.9 mmol/L (8-16); BLOOD UREA NITROGEN 19 mg/dL (7-26); BUN/CREATININE RATIO 26 (6-25); CALCIUM 9.4 mg/dL (8.4-10.2); CARBON DIOXIDE 26 mmol/L (22-29); CHLORIDE 108 mmol/L (98-107); CREATININE, SERUM 0.72 mg/dL (0.57-1.11); EST GLOMERULAR FILTRATION RATE > 60 ML/MIN (60-); GLUCOSE 126 mg/dL (74-118); POTASSIUM 3.9 mmol/L (3.5-5.1); SODIUM 141 mmol/L (136-145)
[2018-10-13] MEDS ORDERED: LEVOTHYROXINE SODIUM 88 MCG TAB PO SCH (06:00)
--- NOTE | 2018-10-13 07:15 | NUR ---
Patient received awake, alert and Ox4. Sitting up on edge of bed and up to bathroom independently and tolerating well. Respirations are even and unlabored. Denies any pain or discomfort. at bedside.
--- NOTE | 2018-10-13 08:50 | NUR ---
Dr. Little here to see patient and can be discharged from cardiac standpoint
[2018-10-13] MEDS ORDERED: ASPIRIN 325 MG TAB EC PO SCH (09:00)
[2018-10-13] MEDS: APIXABAN 5 MG TABLET PO SCH (09:00)
[2018-10-13] MEDS ORDERED: LISINOPRIL 20 MG TAB PO SCH (09:00)
--- NOTE | 2018-10-13 09:30 | NUR ---
Dr. Joslyn Corcoran here to see patient
[2018-10-13] MEDS: FAMOTIDINE 20 MG TAB PO SCH (10:04)
--- NOTE | 2018-10-13 10:30 | NUR ---
Patient discharged via wheelchair to awaiting vehicle driven by her . IV removed and written prescriptions and discharge instructions given to patient and reviewed with patient by Charis Moya RN. Patient denies any pain or discomfort. Respirations are even and unlabored. V/S are stable.
[2018-10-13] MEDS ORDERED: METOPROLOL TARTRATE 25 MG TAB PO SCH (21:00)
[2018-10-13] MEDS ORDERED: METOPROLOL TARTRATE 50 MG TAB PO SCH (21:00)
--- NOTE | 2018-10-14 03:53 | Discharge Summary ---
HISTORY: She is a 73-year-old female patient, admitted with atrial fibrillation with rapid ventricular rate. The patient is having chest pain and shortness of breath. ADMITTING IMPRESSION AND DIAGNOSES: Chest pain, shortness of breath, atrial fibrillation with rapid ventricular rate and D-dimer positive. HOSPITAL COURSE: The patient was admitted with above diagnoses and the patient was monitored in the intensive care unit. The patient was given Cardizem drip and Lovenox anticoagulation. A venous Doppler study was done, which was negative and a CT scan of the chest was done, which was showing artifact rather than PE, so the patient has ruled out for PE and DVT. The patient has recurrent paroxysmal atrial fibrillation with rapid ventricular rate, so the patient will be started on anticoagulation for outpatient Eliquis and the patient will be discharged home on Eliquis and metoprolol to be taken at home and the patient will also follow up as outpatient with me and Dr. Little. MD ALEJANDRA Ibarra/EFRA /[id number]
== END 2018-10-13 10:30 | disposition home or self-care (01) | DRG 310 ==
LOC: ER 16:36 → ERHOLD 22:51 → ICU 22:55
PROVIDERS: ADMIT Internal Medicine; ATTEND Internal Medicine
DX: I48.0 Paroxysmal atrial fibrillation (principal); I47.1 Supraventricular tachycardia; I25.10 Atherosclerotic heart disease of native coronary artery without angina pectoris; J44.9 Chronic obstructive pulmonary disease, unspecified; E03.9 Hypothyroidism, unspecified; E66.9 Obesity, unspecified; Z68.34 Body mass index [BMI] 34.0-34.9, adult
CPT/HCPCS: 36415; 71045; 71260; 80048; 80053; 80061; 82550; 82553; 83880; 84443; 84484; 85025; 85379; 85610; 85730; 93005; 93970; 99284; J1160; J1200; J1650; J2930; J7050; Q9967

== ENCOUNTER → 2018-12-19 | Outpatient (CLI) | payer MEDICARE ==
[~2018-12-19] MED LIST changes: +LISINOPRIL20 MG PO; +OXYCODONE-ACET1 EAC3 PO
--- NOTE | 2018-12-19 10:09 | Diagnostic Imaging Report ---
Exam: Right knee radiographs-3 views; right lower leg radiographs-4 views History: Right knee sprain. Comparison: None. Findings: Right knee: Status post right total knee arthroplasty with hardware in anatomic alignment. No evidence of acute fracture, malalignment, or soft tissue abnormality. Lower leg: No evidence of acute fracture or malalignment. There is a plantar calcaneal spur. Ankle mortise is preserved. There are moderate tibiotalar degenerative changes. Impression: No acute radiographic abnormality. Signed by: Dr. Eunice Zhao MD on 12/19/2018 10:06 AM
== END ==
LOC: RAD 08:43
PROVIDERS: ATTEND Internal Medicine
DX: S83 Dislocation and sprain of joints and ligaments of knee (principal); S83.104S Unspecified dislocation of right knee, sequela

== ENCOUNTER → 2019-03-29 | Outpatient (CLI) | payer MEDICARE ==
--- NOTE | 2019-03-29 10:22 | Diagnostic Imaging Report ---
Left knee, 3 views. History: Left knee pain. Findings: The soft tissues are normal. Bone mineralization is normal. There is no evidence of fracture or dislocation. There are no lytic or sclerotic lesions. There is severe medial joint space narrowing with osteophytosis. Mild joint space narrowing and osteophytosis are present in the lateral and patellofemoral compartments. Patchy sclerosis of the femoral condyles is noted suggestive of bone infarcts. IMPRESSION: Tricompartmental DJD of the left knee, most severely affecting the medial compartment. Signed by: Neno Delgadillo on 03/29/2019 10:19 AM
== END ==
LOC: RAD 09:17
PROVIDERS: ATTEND Internal Medicine
DX: M17.12 Unilateral primary osteoarthritis, left knee (principal)

== ENCOUNTER → 2020-05-09 | Day surgery (SDC) | payer MEDICARE ==
[2020-05-05 10:56] LABS: BASOPHILS % 0.5 % (0.0-1.0); EOSINOPHILS # (AUTO) 0.1 (0.0-0.4); EOSINOPHILS % 0.7 % (0.0-6.0); HEMATOCRIT 38.2 % (34.2-44.1); HEMOGLOBIN 12.6 g/dL (12.0-16.0); LYMPHOCYTES # (AUTO) 1.7 (1.0-3.2); LYMPHOCYTES % 20.3 % (18.0-39.1); MEAN CORPUSCULAR HEMOGLOBIN 30.9 pg (28-32); MEAN CORPUSCULAR VOLUME 93.6 fL (81-99); MONOCYTES # (AUTO) 0.6 (0.2-0.8); MONOCYTES % 6.9 % (4.4-11.3); NEUTROPHILS % 71.4 % (38.7-80.0); PLATELET COUNT 160 x10e3/uL (140-360); RED BLOOD COUNT 4.08 x10e6/uL (3.6-5.1); RED CELL DISTRIBUTION WIDTH 13.1 % (11.7-14.4)
[2020-05-05 11:25] LABS: INR 1.02; PROTHROMBIN TIME 13.9 seconds (11.9-14.5)
--- NOTE | 2020-05-05 11:29 | Diagnostic Imaging Report ---
Exam: CHEST 2 VIEWS Date: 05/05/2020 11:25 AM INDICATION: ^[id number] ^1055 ^PRE-OP Comparison: CT chest dated and x-ray 10/11/2018. FINDINGS: Lines/Tubes:None Lungs:The lungs are well inflated. No focal consolidation or pulmonary edema. Pleura:No pleural effusion. No pneumothorax. Heart/Mediastinum:The cardiomediastinal silhouette is normal in size and contour. Bones/Soft Tissues: No acute osseous abnormality. Mild multilevel degenerative changes of the spine are noted. Upper abdomen: Unremarkable. IMPRESSION: Negative for acute intrathoracic process. Signed by: Denzel Corcoran MD on 05/05/2020 11:26 AM
[2020-05-05 11:35] LABS: ALANINE AMINOTRANSFERASE 23 IU/L (0-55); ALBUMIN 3.8 g/dL (3.5-5.0); ALBUMIN/GLOBULIN RATIO 0.9 (0.8-2.0); ALKALINE PHOSPHATASE 52 IU/L (40-150); BLOOD UREA NITROGEN 17 mg/dL (7-26); BUN/CREATININE RATIO 23 (6-25); CALCIUM 9.7 mg/dL (8.4-10.2); CARBON DIOXIDE 20 mmol/L (22-29); CHLORIDE 107 mmol/L (98-107); CHOL/HDL RATIO 2.4 (3.0-3.6); CHOLESTEROL 123 MD/DL (0-199); CREATININE, SERUM 0.75 mg/dL (0.57-1.11); EST GLOMERULAR FILTRATION RATE > 60 ML/MIN (60-); GLUCOSE 131 mg/dL (74-118); HDL CHOLESTEROL 52 MG/DL (40-60); SODIUM 140 mmol/L (136-145)
[2020-05-05 11:54] LABS: THYROID STIMULATING HORMONE 0.162 uIU/mL (0.350-4.940)
[2020-05-05 12:03] LABS: LDL CHOLESTEROL 38 MG/DL (60-130); TRIGLYCERIDES 165 MG/DL (0-149)
[~2020-05-09] VITALS: Ht 167.6 cm; Wt 97.5 kg
[2020-05-09] VITALS (9 sets, daily range): BP systolic 119–142; BP diastolic 53–87
[~2020-05-09] MED LIST changes: +ATORVASTATIN CA10 MG PO; +DIPHENHYDRAMINE HCL INJ 50 MG/ML VIAL ONE; +ELIQUIS5 MG PO; +FENTANYL CITRATE/PF 100MCG/2 ML INJ ONE; +HEPARIN SOD/SOD CHLORIDE 2,000 ML ONE; +HYDROCODONE/APAP 5MG-325MG TAB ONE; +IOPAMIDOL 300MG/ML 100 ML INFUS..BTL IV ONE; +LEVOTHYROXINE75 MCG PO; +LIDOCAINE HCL 2% LOCAL 20 ML VIAL ONE; +LOSARTAN-HCTZ1 EAC2 PO; +METHYLPREDNISOLONE SOD SUCC 125 MG/2ML VIAL ONE; +MIDAZOLAM HCL 2 MG/2 ML VIAL ONE; +SODIUM CHLORIDE 0.9% 1000ML 1,000 ML ONE; +ULTRAM50 MG PO; +VENTOLIN HFA18 GM INH
--- NOTE | 2020-05-09 10:23 | NUR ---
[facility] Procedure type Receiving Nursing Note: CCL #12 RECOVERY, Identiferx2. Report from MATI Blackwood.Ox4, Back to baseline orientation. Respiration shallow and regular on room air. V/S stable Monitor stable extremities equal and strong. Pedal pulses PT/DP X4 Cap fill brisk < 3 sec. Procedural access left Angioseal groin site. No gross issues pallor,pressure or dysrhythmia. Skin warm and dry integrity appears D/I. IV 20g /0.9ns at 100cchr,to rt hand presents healthy w/o s/s of infiltration or complaint. Abdomen soft and supple. pt offered toileting, denies need to urinate or defecate. No personal affects with patient. Family at BS. Pt and family verbalizes understanding of POC. Reinitiated monitoring in bay #12telemetry. Currently c/o complaint of pain or need.Left groin site. Dr Antonio Landry here ordered .Narco 5/[address] Beba Landry explained findings to pt. ds/rn
--- NOTE | 2020-05-09 10:40 | NUR ---
1040a No gross issues left groin site Medicated Narco x1 per pt request Tolerating po intake. ds/rn
--- NOTE | 2020-05-09 11:30 | NUR ---
1130a denies discomfort Dr Beba Herrera second rounds ok dc at 115pm
--- NOTE | 2020-05-09 11:59 | Operative Report ---
DATE OF PROCEDURE: 05/09/2020 SURGEON: Leo Little MD PROCEDURES PERFORMED: 1. Abdominal aortogram with bilateral lower extremity runoff. 2. Contralateral third order angiography of the right lower extremity. INDICATIONS FOR PROCEDURE: The patient is a 75-year-old female with history of hypertension, type 2 diabetes, and obesity, who had an abnormal arterial duplex read by PCP concerning for peripheral artery disease. The patient has multiple orthopedic surgeries in the past, does complain of leg pain, and there is concern that this could be equivalent, severe claudication symptoms. She is here for definitive peripheral vascular disease, ischemic evaluation. DESCRIPTION OF PROCEDURE: After risks, benefits, pros and cons of this procedure were explained, the patient agreed to proceed. The patient was brought to the cardiac catheterization laboratory, where the left groin was prepped and draped in the usual sterile fashion. A 1% lidocaine solution was used to numb the left groin region. Access to the left femoral artery was obtained utilizing micropuncture system and a 4-Cymro femoral sheath was placed. We initially went up with a 4-Cymro pigtail TR catheter placed in the lower abdominal aorta and utilizing different angulations, abdominal aortogram with bilateral iliofemoral angiography was performed. Next, utilizing a 0.035 Terumo Advantage Glidewire, we crossed over into the contralateral right common femoral artery and performed right lower extremity runoff. This revealed surprisingly patency of all her peripheral vasculature and at that point in time, we decided that she just needs medical therapy. At that point in time, we removed the catheter, and did a left lower extremity runoff through the sheath. At the conclusion of the case, a 6-Cymro Angio-Seal closure was successfully deployed achieving hemostasis. COMPLICATIONS: None. ESTIMATED BLOOD LOSS: Minimal. FINDINGS: 1. The abdominal aorta is patent, gives rise to the bilateral common and external iliac arteries. 2. The bilateral common and external iliac artery with just mild luminal irregularities. 3. The bilateral common femoral artery with just mild luminal irregularities. 4. The bilateral SFA with just mild disease. 5. The bilateral popliteal artery with just mild disease. 6. The bilateral anterior tibial artery with just mild luminal irregularities. 7. The bilateral TP trunks have mild luminal irregularities. 8. The bilateral peroneal and posterior tibial arteries with mild luminal irregularities. PLAN/RECOMMENDATIONS: 1. Three-hour bedrest. 2. The patient just needs risk factor modification and medical therapy. MD RAY Ortiz/EFRA /[id number]
--- NOTE | 2020-05-09 13:15 | NUR ---
1315p----CCL Discharge Nursing Note----left Angioseal Femoral---patent no fix Dr Little------- Pt meets discharge criteria. VS wnl, alert and oriented. Pt and Family Understands discharge instruction. Overall general assess w/o gross outliers. Skin warm, dry, and intact. Right groin dressing soft w/o s/s of hematoma. Pedal pulses unchanged. IV removed and appears distal tip is intact. Denies pain relieved wit Narco 325/5 Pt maintains mask on for COVID 19 precautions being taken by wheel chair to awaiting car. Transfers w/o gross distress with discharge paperwork in hand. ds/rn
== END | disposition home or self-care (01) ==
LOC: CATH LAB 07:37
PROVIDERS: ATTEND Internal Medicine Cardiovascular Disease
DX: I70.213 Atherosclerosis of native arteries of extremities with intermittent claudication, bilateral legs (principal); I25.10 Atherosclerotic heart disease of native coronary artery without angina pectoris; I10 Essential (primary) hypertension; I48.0 Paroxysmal atrial fibrillation; E03.9 Hypothyroidism, unspecified; J44.9 Chronic obstructive pulmonary disease, unspecified; E11.9 Type 2 diabetes mellitus without complications; E66.9 Obesity, unspecified; Z91.013 Allergy to seafood; Z01.812 Encounter for preprocedural laboratory examination; Z01.818 Encounter for other preprocedural examination; Z11.59 Encounter for screening for other viral diseases; Z79.02 Long term (current) use of antithrombotics/antiplatelets; Z68.34 Body mass index [BMI] 34.0-34.9, adult; Z86.711 Personal history of pulmonary embolism; Z82.49 Family history of ischemic heart disease and other diseases of the circulatory system; Z82.3 Family history of stroke
CPT/HCPCS: 36247; 36415; 71046; 75625; 75716; 80053; 80061; 84443; 85025; 85610; 85730; C1760; C1766; C1769; C1887; J1200; J2001; J2250; J2930; J3010; J7030; Q9967; U0002; 99153

== ENCOUNTER → 2020-05-23 | Outpatient (CLI) | payer MEDICARE ==
[~2020-05-23] MED LIST changes: -DIPHENHYDRAMINE HCL INJ 50 MG/ML VIAL ONE; -FENTANYL CITRATE/PF 100MCG/2 ML INJ ONE; -HEPARIN SOD/SOD CHLORIDE 2,000 ML ONE; -HYDROCODONE/APAP 5MG-325MG TAB ONE; -IOPAMIDOL 300MG/ML 100 ML INFUS..BTL IV ONE; -LIDOCAINE HCL 2% LOCAL 20 ML VIAL ONE; -METHYLPREDNISOLONE SOD SUCC 125 MG/2ML VIAL ONE; -MIDAZOLAM HCL 2 MG/2 ML VIAL ONE; -SODIUM CHLORIDE 0.9% 1000ML 1,000 ML ONE
== END ==
LOC: RAD 13:54
PROVIDERS: ATTEND Internal Medicine
DX: T18.9XXD Foreign body of alimentary tract, part unspecified, subsequent encounter (principal)
CPT/HCPCS: 74018

== ENCOUNTER → 2020-07-01 | Outpatient (CLI) | payer MEDICARE | LOC: RAD 15:58 | PROVIDERS: ATTEND Internal Medicine | DX: M43.07 Spondylolysis, lumbosacral region (principal) | CPT/HCPCS: 72110; 72220 ==

== ENCOUNTER → 2021-01-07 | Outpatient (CLI) | payer MEDICARE | LOC: MAMMO 08:55 | PROVIDERS: ATTEND Internal Medicine | DX: Z12.31 Encounter for screening mammogram for malignant neoplasm of breast (principal) | CPT/HCPCS: 77067 ==

== ENCOUNTER → 2021-12-17 | Outpatient (CLI) | payer MEDICARE | LOC: RAD 11:40 | PROVIDERS: ATTEND Internal Medicine | DX: J41.0 Simple chronic bronchitis (principal) | CPT/HCPCS: 71046 ==

== ENCOUNTER → 2022-01-21 | Outpatient (CLI) | payer MEDICARE | LOC: MAMMO 08:04 | PROVIDERS: ATTEND Internal Medicine | DX: Z12.31 Encounter for screening mammogram for malignant neoplasm of breast (principal) | CPT/HCPCS: 77067 ==

== ENCOUNTER 2024-11-05 00:40 | Emergency (ER) | payer MEDICARE ==
[~2024-11-05] VITALS: Ht 167.6 cm; Wt 95.3 kg
[~2024-11-05 00:40] MED LIST changes: +AMOX TR-K CLV1 EAC2 PO; +BREO ELLIPTA 11 EACH INH; +DICYCLOMINE HCL20 MG PO; +EPINEPHRIN0.3 MG/0.3 IM; +GABAPENTIN300 MG PO; +LOSARTAN POTASS25 MG PO; +METFORMIN HCL500 MG PO; +METOPROLOL SUCC25 MG PO; +OMEPRAZOLE40 MG PO; +ONDANSETRON ODT4 MG PO; +PREDNISONE20 MG PO; +PROVENTIL HFA6.7 GM INH; +SYNTHROID125 MCG PO; +ULTRAM 50MG50 MG PO
[2024-11-05] MEDS: ASPIRIN 325 MG TAB PO ONE (01:45)
[2024-11-05 03:58] VITALS: PULSE 69; RESP 16; TEMP 97.7
[2024-11-05 06:10] VITALS: BP 167/72; PULSE 69; RESP 16; TEMP 97.7; O2SAT 97
== END 2024-11-05 06:12 | disposition other institution (70) ==
LOC: MERGE 00:44 → FSED 00:44
DX: R07.9 Chest pain, unspecified (principal); I21.4 Non-ST elevation (NSTEMI) myocardial infarction; I10 Essential (primary) hypertension; E11.9 Type 2 diabetes mellitus without complications; I48.91 Unspecified atrial fibrillation; E78.5 Hyperlipidemia, unspecified; E03.9 Hypothyroidism, unspecified; Z87.19 Personal history of other diseases of the digestive system
CPT/HCPCS: 71046; 84484; 93005; 99284

== ENCOUNTER → 2024-11-08 | Outpatient (REF) | payer MEDICARE | LOC: RAD 12:56 | PROVIDERS: ATTEND Internal Medicine | DX: M25.562 Pain in left knee (principal); M25.561 Pain in right knee; Z91.81 History of falling ==

== ENCOUNTER → 2024-11-15 | Outpatient (REF) | payer MEDICARE | LOC: CT 15:41 | PROVIDERS: ATTEND Internal Medicine | DX: S09.90XA Unspecified injury of head, initial encounter (principal); M25.562 Pain in left knee; M25.561 Pain in right knee; Z91.81 History of falling | CPT/HCPCS: 70450 ==

== ENCOUNTER 2025-05-04 10:54 | Emergency (ER) | payer MEDICARE ==
[~2025-05-04] VITALS: Ht 167.6 cm; Wt 95.7 kg
[2025-05-04] MEDS ORDERED: FAMOTIDINE 20 MG/2 ML VIAL IV ONE (11:24)
[2025-05-04] MEDS: FAMOTIDINE 20 MG/2 ML VIAL IV SCH (11:42)
[2025-05-04] MEDS: DIPHENHYDRAMINE HCL INJ 50 MG/ML VIAL IV STA (11:42)
[2025-05-04] MEDS: DEXAMETHASONE SOD PHOS INJ 4 MG/ML SDV IV ONE (11:42)
[2025-05-04] MEDS: ACETAMINOPHEN 1000 MG/100 ML IV STA (11:48)
[2025-05-04] MEDS: SODIUM CHLORIDE 0.9% 1000ML 1,000 ML IV ONE (11:48)
[2025-05-04] MEDS ORDERED: CETIRIZINE HCL10 MG PO (13:00)
[2025-05-04] MEDS ORDERED: PREDNISONE20 MG PO (13:00)
[2025-05-04 13:51] VITALS: PULSE 76; RESP 18; TEMP 97.8; O2SAT 95
[2025-05-04] MEDS ORDERED: LEVOTHYROXINE112 MCG PO (18:24)
[2025-05-04] MEDS ORDERED: TRELEGY ELLIPT1 EAC1 (18:24)
[2025-05-04] MEDS ORDERED: VITAMIN D250 MCG (18:24)
== END 2025-05-04 14:11 | disposition home or self-care (01) ==
LOC: FSED 10:59
DX: R21 Rash and other nonspecific skin eruption (principal); T78.40XA Allergy, unspecified, initial encounter; I10 Essential (primary) hypertension; E11.65 Type 2 diabetes mellitus with hyperglycemia; J44.9 Chronic obstructive pulmonary disease, unspecified; I48.91 Unspecified atrial fibrillation; E03.9 Hypothyroidism, unspecified; I25.10 Atherosclerotic heart disease of native coronary artery without angina pectoris; K21.9 Gastro-esophageal reflux disease without esophagitis; M54.9 Dorsalgia, unspecified; G89.29 Other chronic pain; I25.2 Old myocardial infarction; Z87.19 Personal history of other diseases of the digestive system
CPT/HCPCS: 96374; 96375; 99283; J0131; J1100; J1200; J1308; J7030